=== PATIENT | male | born 1940 | race Caucasian/White ===

== ENCOUNTER 2018-06-02 13:17 | Inpatient (IN) | payer MEDICARE, BC ==
[2018-06-02 14:15] LABS: Basophils # (A) 0.1 k/uL (0-0.2); Basophils % (A) 1 %; Eosinophils # (A) 0.1 k/uL (0-0.7); Eosinophils % (A) 2 %; HCT 41.1 % (39.0-53.0); HGB 13.6 gm/dL (13.0-17.5); Lymphocytes % (A) 15 %; MCH 30.2 pg (25.0-35.0); MCV 91.5 fL (80.0-100.0); Mean Platelet Volume 6.6; Monocytes # (A) 0.4 k/uL (0-1.0); Monocytes % (A) 7 %; Neutrophils # (A) 4.7 k/uL (1.3-7.7); Neutrophils % (A) 73 %; Platelet Count 227 k/uL (150-450); RBC 4.49 m/uL (4.30-5.90); RDW 13.2 % (11.5-15.5); WBC 6.4 k/uL (3.8-10.6)
[2018-06-02 14:21] LABS: Partial Thromboplastin Time 24.3 sec (22.0-30.0); Prothrombin Time 10.5 sec (9.0-12.0)
[2018-06-02 14:28] LABS: ALT 27 U/L (21-72); AST 25 U/L (17-59); Albumin 3.8 g/dL (3.5-5.0); Alkaline Phosphatase 64 U/L (38-126); Anion Gap 9 mmol/L; Blood Urea Nitrogen 20 mg/dL (9-20); Calcium 9.3 mg/dL (8.4-10.2); Carbon Dioxide 22 mmol/L (22-30); Chloride 109 mmol/L (98-107); Glucose 92 mg/dL (74-99); Magnesium 1.8 mg/dL (1.6-2.3); Potassium 4.3 mmol/L (3.5-5.1); Sodium 140 mmol/L (137-145); Total Bilirubin 0.5 mg/dL (0.2-1.3); Total Protein 6.5 g/dL (6.3-8.2)
[2018-06-02 14:47] LABS: Troponin I 0.083 ng/mL (0.000-0.034)
[2018-06-02] MEDS ORDERED: NITROGLYCERIN OINT 1 INCH/GM PACKET TOPICAL STA (15:33)
[2018-06-02] MEDS ORDERED: ASPIRIN 81 MG PO STA (15:33)
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
[2018-06-02] MEDS ORDERED: NITROGLYCERIN SL TABS 0.4 MG TAB SUBLINGUAL PRN (16:05)
[2018-06-02] MEDS ORDERED: HEPARIN SODIUM,PORCINE 5,000 UNIT/ML 1 ML VIAL IV ONE (16:05)
[2018-06-02] MEDS ORDERED: HEPARIN SODIUM,PORCINE 5,000 UNIT/ML 1 ML VIAL IV PRN (16:05)
--- NOTE | 2018-06-02 16:08 | XR ---
EXAMINATION TYPE: XR chest 2V DATE OF EXAM: 06/02/2018 COMPARISON: NONE HISTORY: Upper chest pain and shortness of breath TECHNIQUE: Frontal and lateral views of the chest are obtained. FINDINGS: There is no focal air space opacity, pleural effusion, or pneumothorax seen. The cardiac silhouette size is within normal limits. The osseous structures are intact. Mild multilevel degener ative changes of the thoracic spine are seen. IMPRESSION: No acute cardiopulmonary process.
[2018-06-02] MEDS: HEPARIN SOD,PORK IN 0.45% NACL 25,000 UNIT in 0.45% NACL 1 250ML.BAG IV SCH (17:39)
--- NOTE | 2018-06-02 19:20 | CONS ---
CONSULTATION CHIEF COMPLAINT: Chest pain. Phani is a 78-year-old gentleman with history of coronary artery disease, status post prior angioplasty who comes to hospital with chest pain. He describes it as precordial chest pressure that started around 10 or 11 o'clock today. Moderate to severe intensity at rest, radiated to his back. He took 2 nitroglycerins following which he became pain-free. He came [facility] the emergency room at [facility]. EKG shows sinus rhythm with right bundle branch block. At the time of my evaluation, he is pain free, hemodynamically stable and in no apparent distress. The patient's clinical presentation is consistent with acute non ST-segment elevation myocardial infarction and I advised the patient to undergo cardiac catheterization which will be done tomorrow morning. In the meantime, we will treat him with aspirin, nitrates, beta blockers, statins, and intravenous heparin. PAST MEDICAL HISTORY: Significant for coronary artery disease, status post angioplasty. MEDICATIONS: Include Crestor 10 q. daily, aspirin and vitamin C. ALLERGIES: No known drug allergies. FAMILY HISTORY: Negative for premature coronary artery disease. SOCIAL HISTORY: Is negative for current smoking, EtOH abuse, or drug abuse. REVIEW OF SYSTEMS: HEENT is unremarkable. Cardiac as described above. Respiratory negative. GI negative. GENITOURINARY: Negative. Allergy: Negative. Musculoskeletal negative. CONSTITUTIONAL negative. ENDOCRINE: Negative. Oncological negative. Derm: Negative. Rest of the system review is not relevant. EXAM: Comfortable at rest. Vital signs are stable. There is no jugular venous distention. Carotid upstroke is normal. There is no bruit. Chest exam reveals good air entry bilaterally. Heart exam reveals first and second heart sounds. Systolic murmur at the apex. Abdomen is soft. Exam of the extremities did not reveal any edema. Peripheral pulses are felt. EKG shows sinus rhythm with right bundle branch block. LABS: Show that hemoglobin is normal. Platelet count is normal. Troponin is elevated at 0.08. Potassium is 4.3. Creatinine is 0.9. ASSESSMENT: Acute non ST-segment elevation myocardial infarction. PLAN: Patient will be treated with aspirin, heparin, nitrates, beta blockers and statins. He will undergo cardiac catheterization tomorrow morning. He had been explained of risks, benefits and alternatives, understood and accepted. MMODL / IJN: [id number] /
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
[2018-06-02 20:34] VITALS: BMI 28.7
[2018-06-02 21:00] LABS: Creatine Kinase MB 2.4 ng/mL (0.0-2.4)
[2018-06-02 21:09] LABS: Troponin I 0.694 ng/mL (0.000-0.034)
[2018-06-03] MEDS: METOPROLOL SUCCINATE (ER) 25 MG TAB.ER.24H PO SCH ×4 (00:41→09:16)
[2018-06-03] MEDS: NITROGLYCERIN OINT 1 INCH/GM PACKET TOPICAL SCH ×6 (00:42→20:37)
[2018-06-03 02:45] LABS: Mean Platelet Volume 6.5; Platelet Count 229 k/uL (150-450)
[2018-06-03 02:56] LABS: Cholesterol 121 mg/dL (<200); HDL Cholesterol 26 mg/dL (40-60); LDL Cholesterol,Calculated 85 mg/dL (0-99); Triglycerides 49 mg/dL (<150)
[2018-06-03 03:17] LABS: Creatine Kinase MB 2.2 ng/mL (0.0-2.4)
[2018-06-03 03:45] LABS: Troponin I 0.328 ng/mL (0.000-0.034)
[2018-06-03] MEDS ORDERED: ALPRAZolam 0.5 MG TAB PO PRN (08:16)
[2018-06-03] MEDS ORDERED: ALPRAZolam 0.25 MG TAB PO PRN (08:16)
[2018-06-03] MEDS ORDERED: NITROGLYCERIN SL TABS 0.4 MG TAB SUBLINGUAL PRN (08:16)
[2018-06-03] MEDS ORDERED: ASPIRIN 325 MG TAB PO STA (08:16)
[2018-06-03] MEDS ORDERED: SODIUM CHLORIDE 0.9% 1,000 ML in EMPTY BAG 1 BAG IV ONE (08:16)
[2018-06-03] MEDS ORDERED: ATORVASTATIN 80 MG TAB PO STA (08:16)
[2018-06-03] MEDS: ASPIRIN 325 MG TAB PO SCH ×3 (08:57→09:16)
[2018-06-03] MEDS: ATORVASTATIN 80 MG TAB PO SCH ×3 (08:57→09:16)
[2018-06-03] MEDS ORDERED: IV FLUID CONTINUATION 400 ML IV ONE (09:28)
[2018-06-03] MEDS ORDERED: LIDOCAINE 1% INJ 10MG/ML (20 ML MDV) ONE ×2 (09:38→11:19)
[2018-06-03] MEDS ORDERED: fentaNYL (PF) 50 MCG/ML 2 ML AMP ONE (09:53)
[2018-06-03] MEDS ORDERED: MIDAZOLAM 2 MG/2 ML VIAL IV ONE (09:56)
[2018-06-03] MEDS ORDERED: LIDOCAINE 1% INJ 10MG/ML (20 ML MDV) SQ ONE ×2 (09:58→11:20)
[2018-06-03] MEDS ORDERED: BIVALIRUDIN BOLUS 250 MG/50 ML IV ONE (10:56)
[2018-06-03] MEDS ORDERED: BIVALIRUDIN 250 MG in SODIUM CHLORIDE 0.9% 50 ML IV ONE (10:56)
--- NOTE | 2018-06-03 11:14 | CC ---
CARDIAC CATHETERIZATION REPORT INDICATION: Non ST-segment elevation myocardial infarction. PROCEDURE NOTE: After obtaining informed consent, left heart catheterization and coronary angiogram are performed via the right femoral artery using standard Cody catheters. The patient tolerated the procedure well without any obvious immediate complications. Patient received moderate conscious sedation and total sedation time was 15 minutes. FINDINGS: 1. HEMODYNAMICS: Left ventricular end-diastolic pressure is 8 to 12 mm. There is no significant gradient across aortic valve. 2. LEFT VENTRICULOGRAM: Left ventriculogram is not performed. 3. ANGIOGRAPHIC DATA. Left main coronary artery is a normal size vessel and is free of stenosis. Divides into left anterior descending coronary artery and circumflex coronary artery. The previously stented segment in the LAD appears patent and free of significant disease. Circumflex coronary artery is a "nondominant" vessel gives off large caliber OM1 and OM2. OM2 has a focal 90% to 95% stenosis. Right coronary artery is a large dominant vessel that has mild nonobstructive disease in the mid to distal portion. There was damping of the pressure wave pattern on engaging the right coronary artery. CONCLUSIONS: 1. Patent stent within the LAD. 2. A 90% stenosis involving second OM branch. PLAN: Patient will undergo angioplasty with stent placement of second OM. MMODL / IJN: [id number] /
[2018-06-03] MEDS ORDERED: IOPAMIDOL-370 125ML BTL INJ ONE (11:21)
[2018-06-03] MEDS ORDERED: fentaNYL (PF) 50 MCG/ML 2 ML AMP IV ONE (11:21)
[2018-06-03] MEDS ORDERED: TICAGRELOR 90 MG TAB ONE (11:22)
[2018-06-03] MEDS ORDERED: TICAGRELOR 90 MG TAB PO ONE (11:22)
[2018-06-03] MEDS ORDERED: SODIUM CHLORIDE 0.9% 1,000 ML IV ONE (11:24)
[2018-06-03] MEDS ORDERED: SODIUM CHLORIDE 0.9% 1,000 ML IV SCH (12:00)
--- NOTE | 2018-06-03 15:49 | P.PN ---
Subjective 78-year-old pleasant gentleman admitted non-ST elevation microinfarction underwent cardia catheterization and stenting to use marginal branch patient is otherwise clinically doing well. Constitutional: Denied any fatigue denied any fever. Cardio vascular: denied any chest pain, palpitations Gastrointestinal denied any nausea vomiting Pulmonary: Denied any shortness of breath cough Neurologic denied any new focal deficits All inpatient medications were reviewed and appropriate changes in these medications as dictated in the interval history and assessment and plan. Objective - Vital Signs Vital signs: Vital Signs Temp 98.2 F 06/03/18 09:00 Pulse 68 06/03/18 14:45 Resp 30 H 06/03/18 10:00 BP 150/70 06/03/18 14:45 Pulse Ox 98 06/03/18 14:45 Intake & Output 06/02/18 06/03/18 06/03/18 18:59 06:59 18:59 Intake Total 90 479.37 Output Total 350 500 Balance -260 -20.63 Weight 90.718 kg 90.7 kg Intake: IV 459.37 Sodium Chloride 0.9% 1, 75 000 ml @ 75 mls/hr IV . [id number] [facility] Rx#:[id number] Oral 90 20 Output: Urine 350 500 Other: Voiding Method Urinal - Exam PHYSICAL EXAMINATION: GENERAL: The patient is alert and oriented x3, not in any acute distress. Well developed, well nourished. HEENT: Pupils are round and equally reacting to light. EOMI. No scleral icterus. No conjunctival pallor. Normocephalic, atraumatic. No pharyngeal erythema. No thyromegaly. CARDIOVASCULAR: S1 and S2 present. No murmurs, rubs, or gallops. PULMONARY: Chest is clear to auscultation, no wheezing or crackles. ABDOMEN: Soft, nontender, nondistended, normoactive bowel sounds. No palpable organomegaly. MUSCULOSKELETAL: No joint swelling or deformity. EXTREMITIES: No cyanosis, clubbing, or pedal edema. NEUROLOGICAL: Gross neurological examination did not reveal any focal deficits. SKIN: No rashes. - Labs CBC & Chem 7: 06/03/18 02:26 06/02/18 13:44 Labs: Abnormal Lab Results - Last 24 Hours (Table) 06/02/18 06/03/18 06/03/18 Range/Units 20:12 02:26 02:26 APTT (22.0-30.0) sec Total Creatine Kinase 43 L 38 L (55-170) U/L Troponin I 0.694 H* 0.328 H* (0.000-0.034) ng/mL HDL Cholesterol 26 L (40-60) mg/dL 06/03/18 Range/Units 02:26 APTT 48.1 H (22.0-30.0) sec Total Creatine Kinase (55-170) U/L Troponin I (0.000-0.034) ng/mL HDL Cholesterol (40-60) mg/dL Assessment and Plan Plan: -non-ST elevation myocardial infarction: Continue with IV heparin, aspirin, beta delia, statin. Patient underwent cardia catheterization and stenting to obtuse marginal 2 with a possibility of discharge tomorrow carotid artery disease with previous stents in the past -Gastroesophageal reflux disease -Benign prostatic hypertrophy -
[2018-06-03] MEDS: CALCIUM CARB-VIT D 500MG-200UN 1 EACH TAB PO SCH ×3 (17:32→20:32)
[2018-06-03] MEDS ORDERED: ATORVASTATIN 20 MG TAB PO SCH (21:00)
[2018-06-03] MEDS: HEPARIN SOD,PORK IN 0.45% NACL 25,000 UNIT in 0.45% NACL 1 250ML.BAG IV SCH (21:57)
--- NOTE | 2018-06-04 03:13 | PTCA ---
PERCUTANEOUSTRANS CORORONARY ANGIOGRAPHY DATE OF SERVICE: 06/03/2018. PROCEDURE: PTCA and stenting of second obtuse marginal branch of circumflex. PERFORMED BY: Dr. Norm Cohen. ANESTHESIA: Moderate conscious sedation time was 28 minutes. Patient was administered Versed and fentanyl. Oxygen saturation, hemodynamics and EKG were monitored closely. CLINICAL INFORMATION: Mr. 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 Ryan Cohen, presented to the hospital with symptoms of unstable angina and mild troponin elevation. Dr. Peters performed a cardiac cath which revealed that the second obtuse marginal had a 95% lesion. There was a moderate lesion in the first obtuse marginal of nearly 50%. The LAD that was stented was widely patent. He was advised intervention of the circumflex marginal that was performed in the same setting. PROCEDURE NOTE: The existing 6-[place] introducer in the right femoral artery was used to perform the procedure. A standard left Cody guide catheter of 6-[place] caliber was used to cannulate the left coronary artery. A run-through wire was used to cross the lesion, wire was kept distally. Without predilatation, a 12 mm long 2.5 caliber Xience stent was deployed at 14 atmospheres. Patient had mild chest discomfort. No significant EKG changes. Excellent angiographic result was achieved. He received Angiomax bolus and infusion. He also received Brilinta 180 mg orally. The sheath was taken out and a Perclose device used to secure hemostasis. Excellent angiographic result without complication was achieved. The findings were discussed with the patient and family. He was sent to the room in a stable condition. MMODL / IJN: [id number] /
[2018-06-04] MEDS: NITROGLYCERIN OINT 1 INCH/GM PACKET TOPICAL SCH (05:07)
[2018-06-04 06:32] LABS: Basophils % (A) 1 %; Eosinophils # (A) 0.2 k/uL (0-0.7); Eosinophils % (A) 4 %; HCT 39.6 % (39.0-53.0); HGB 13.3 gm/dL (13.0-17.5); Lymphocytes # (A) 1.3 k/uL (1.0-4.8); Lymphocytes % (A) 22 %; MCH 30.9 pg (25.0-35.0); MCHC 33.5 g/dL (31.0-37.0); MCV 92.3 fL (80.0-100.0); Mean Platelet Volume 6.9; Monocytes # (A) 0.4 k/uL (0-1.0); Monocytes % (A) 7 %; Neutrophils # (A) 3.8 k/uL (1.3-7.7); Neutrophils % (A) 63 %; Platelet Count 226 k/uL (150-450); RDW 13.2 % (11.5-15.5)
[2018-06-04 06:47] LABS: Anion Gap 7 mmol/L; Blood Urea Nitrogen 16 mg/dL (9-20); Calcium 9.3 mg/dL (8.4-10.2); Carbon Dioxide 23 mmol/L (22-30); Chloride 110 mmol/L (98-107); Glucose 93 mg/dL (74-99); Potassium 4.2 mmol/L (3.5-5.1); Sodium 140 mmol/L (137-145)
[2018-06-04 08:44] VITALS: BP 136/68; PULSE 70; RESP 18; TEMP 97.7
[2018-06-04] MEDS: METOPROLOL SUCCINATE (ER) 25 MG TAB.ER.24H PO SCH (08:45)
[2018-06-04] MEDS: CALCIUM CARB-VIT D 500MG-200UN 1 EACH TAB PO SCH (08:45)
[2018-06-04] MEDS ORDERED: LOSARTAN 25 MG TAB PO SCH (09:00)
[2018-06-04] MEDS ORDERED: CLOPIDOGREL 75 MG TAB PO SCH (09:00)
[2018-06-04] MEDS ORDERED: ASPIRIN 81 MG PO SCH (09:00)
[2018-06-04] MEDS ORDERED: ASCORBIC ACID 500 MG TAB PO SCH (09:00)
--- NOTE | 2018-06-04 09:13 | ECHOF ---
Referral Reason:nstemi MEASUREMENTS -------- HEIGHT: 180.3 cm WEIGHT: 90.3 kg BP: 111/65 IVSd: 1.3 cm (0.6 - 1.1) LVIDd: 4.1 cm (3.9 - 5.3) LVPWd: 1.7 cm (0.6 - 1.1) IVSs: 1.8 cm LVIDs: 1.9 cm LVPWs: 1.9 cm Ao Diam: 3.0 cm (2.0 - 3.7) AV Cusp: 2.0 cm (1.5 - 2.6) LA Diam: 2.6 cm (2.7 - 3.8) MV EXCURSION: 16.659 mm (> 18.000) MV EF SLOPE: 96 mm/s (70 - 150) EPSS: 0.6 cm MV E Mario: 0.92 m/s MV DecT: 278 ms MV A Mario: 0.95 m/s MV E/A Ratio: 0.98 RAP: 5.00 mmHg RVSP: 14.84 mmHg FINDINGS -------- Sinus rhythm. This was a technically difficult study with suboptimal views. The left ventricular size is normal. There is moderate concentric left ventricular hypertrophy. O verall left ventricular systolic function is normal with, an EF between 55 - 60 %. The right ventricle is normal in size and function. The left atrium is normal in size. The right atrium is normal in size. Lumason used The aortic valve is trileaflet and appears structurally normal. Mild mitral regurgitation is present. Mild tricuspid regurgitation present. The right ventricular systolic pressure, as measured by Doppl er, is 14.84mmHg. Pulmonic valve appears structurally normal. The aortic root, ascending aorta and aortic arch are normal. IVC Not well visulized. The pericardium is normal. CONCLUSIONS -------- 1. Sinus rhythm. 2. This was a technically difficult study with suboptimal views. 3. The left ventricular size is normal. 4. There is moderate concentric left ventricular hypertrophy. 5. Overall left ventricular systolic function is normal with, an EF between 55 - 60 %. 6. The right ventricle is normal in size and function. 7. The left atrium is normal in size. 8. The right atrium is normal in size. 9. Lumason used 10. The aortic valve is trileaflet and appears structurally normal. 11. Mild mitral regurgitation is present. 12. Mild tricuspid regurgitation present. 13. The right ventricular systolic pressure, as measured by Doppler, is 14.84mmHg. 14. Pulmonic valve appears structurally normal. 15. The aortic root, ascending aorta and aortic arch are normal. 16. IVC Not well visulized. 17. The pericardium is normal. MATERIAL WORKER: Nora Leal RDCS
--- NOTE | 2018-06-04 11:10 | P.DS ---
Providers Date of admission: 06/02/18 16:05 Attending physician: Jimmy Moore Consults: 06/02/18 16:05 Consult Physician Urgent Consulting Provider: Jose Peters Consult Reason/Comments: nstemi Do you want consulting provider notified?: Yes Primary care physician: Stated None Hospital Course: 78-year-old pleasant gentleman admitted non-ST elevation microinfarction underwent cardia catheterization and stenting to obtuse marginal branch patient is otherwise clinically doing well.patient will be discharged today. Next PHYSICAL EXAMINATION: GENERAL: The patient is alert and oriented x3, not in any acute distress. Well developed, well nourished. HEENT: Pupils are round and equally reacting to light. EOMI. No scleral icterus. No conjunctival pallor. Normocephalic, atraumatic. No pharyngeal erythema. No thyromegaly. CARDIOVASCULAR: S1 and S2 present. No murmurs, rubs, or gallops. PULMONARY: Chest is clear to auscultation, no wheezing or crackles. ABDOMEN: Soft, nontender, nondistended, normoactive bowel sounds. No palpable organomegaly. MUSCULOSKELETAL: No joint swelling or deformity. EXTREMITIES: No cyanosis, clubbing, or pedal edema. NEUROLOGICAL: Gross neurological examination did not reveal any focal deficits. SKIN: No rashes. Assessment and Plan Plan: -non-ST elevation myocardial infarction: Continue with IV heparin, aspirin, beta delia, statin. Patient underwent cardia catheterization and stenting to obtuse marginal 2 carotid artery disease with previous stents in the past -Gastroesophageal reflux disease -Benign prostatic hypertrophy - Patient Condition at Discharge: Serious Plan - Discharge Summary Discharge Rx Participant: No New Discharge Prescriptions: New Clopidogrel [Plavix] 75 mg PO DAILY #30 tab Losartan [Cozaar] 25 mg PO DAILY #30 tab Metoprolol Succinate (ER) [Toprol XL] 12.5 mg PO DAILY #30 tab.er.24h Continue Aspirin EC [Ecotrin Low Dose] 81 mg PO DAILY Multivitamins, Thera [Multivitamin (formulary)] 1 tab PO DAILY Ascorbic Acid [Vitamin C] 1,000 mg PO DAILY Calcium Carb-Vit D 500Mg-200Un [Oscal 500+D] 1 tab PO QID [place]-3 Fatty Acids [[place]-3] 2,000 mg PO DAILY Rosuvastatin [Crestor] 10 mg PO DAILY Nitroglycerin Sl Tabs [Nitrostat] 0.4 mg PO DIRECTED #25 tab Discharge Medication List Ascorbic Acid [Vitamin C] 1,000 mg PO DAILY 12/22/13 [History] Aspirin EC [Ecotrin Low Dose] 81 mg PO DAILY 12/22/13 [History] Calcium Carb-Vit D 500Mg-200Un [Oscal 500+D] 1 tab PO QID 12/22/13 [History] Multivitamins, Thera [Multivitamin (formulary)] 1 tab PO DAILY 12/22/13 [History ] [place]-3 Fatty Acids [[place]-3] 2,000 mg PO DAILY 12/22/13 [History] Rosuvastatin [Crestor] 10 mg PO DAILY 06/02/18 [History] Clopidogrel [Plavix] 75 mg PO DAILY #30 tab 06/04/18 [Rx] Losartan [Cozaar] 25 mg PO DAILY #30 tab 06/04/18 [Rx] Metoprolol Succinate (ER) [Toprol XL] 12.5 mg PO DAILY #30 tab.er.24h 06/04/18 [ Rx] Nitroglycerin Sl Tabs [Nitrostat] 0.4 mg PO DIRECTED #25 tab 06/04/18 [Rx] Follow up Appointment(s)/Referral(s): Blanco Chen MD [STAFF PHYSICIAN] - 06/13/18 8:30 am (Saturday) Lopez Singh MD [REFERRING] - 06/10/18 10:30 am (Saturday with [employer]) Patient Instructions/Handouts: *Surgery [facility] - After Heart Catheterization - [employer] Instructions, Left Heart Catheterization (DC) Discharge Disposition: HOME SELF-CARE
--- NOTE | 2018-06-04 11:24 | P.PN ---
Subjective Progress Note Date: 06/04/18 This is a pleasant 78-year-old gentleman with known history of coronary artery disease and prior stenting who presented to the hospital with a non-Q-wave myocardial infarction. He was taken to the cardiac catheterization lab where he underwent angioplasty and stenting of the OM. Echocardiogram with Doppler study revealed an ejection fraction of 55-60%. EKG from this morning was reviewed, reveals normal sinus rhythm with no changes from post-PCI. Blood pressure 130/60 with a heart rate in the 60s, 98% on room air. White blood cell count 6.0, hemoglobin 13.3, platelet count 226. Sodium 140, potassium 4.2 , BUN 16, creatinine 0.9. Objective - Vital Signs Vital signs: Vital Signs Temp 97.7 F 06/04/18 08:41 Pulse 70 06/04/18 08:41 Resp 18 06/04/18 08:41 BP 136/68 06/04/18 08:41 Pulse Ox 98 06/04/18 08:41 Intake & Output 06/03/18 06/04/18 06/04/18 18:59 06:59 18:59 Intake Total 679.37 2440 240 Output Total 500 Balance 179.37 2440 240 Weight 90.7 kg Intake: IV 459.37 1000 Sodium Chloride 0.9% 1, 75 1000 000 ml @ 75 mls/hr IV . [id number] TRINY Rx#:[id number] Oral 220 1440 240 Output: Urine 500 Other: Voiding Method Toilet Toilet # Voids 2 - Exam PHYSICAL EXAMINATION: GENERAL: 78-year-old gentleman in no acute distress at the time of my examination HEENT: Head is atraumatic, normocephalic. Pupils equal, round. Sclera anicteric. Conjunctiva are clear. Mucous membranes of the mouth are moist. Neck is supple. There is no elevated jugular venous pressure. No carotid bruit is heard. HEART EXAMINATION: Heart S1, S2 normal. No murmur or gallop heard. CHEST EXAMINATION: Lungs are clear to auscultation and precussion. No chest wall tenderness is noted on palpation or with deep breathing. ABDOMEN: Soft, nontender. Bowel sounds are heard. No organomegaly noted. EXTREMITIES: 2+ peripheral pulses with no evidence of peripheral edema and no calf tenderness noted. Right groin ecchymotic, soft, no bruit, no hematoma. NEUROLOGIC patient is awake, alert and oriented 3 . . - Labs CBC & Chem 7: 06/04/18 06:09 06/04/18 06:09 Labs: Abnormal Lab Results - Last 24 Hours (Table) 06/04/18 Range/Units 06:09 Chloride 110 H (98-107) mmol/L Assessment and Plan Plan: Assessment and plan #1 non-ST elevation VT, status post angioplasty and stenting of the OM. #2 history of coronary artery disease with prior stent placement #3 hyperlipidemia #4 hypertension Plan From cardiology's perspective, patient may be able to be discharged home today. We will make a follow-up appointment in the office in one week. Patient will be discharged home on aspirin 81 mg daily, Lipitor 20 mg daily, Plavix 75 mg daily, losartan 25 mg daily, metoprolol 12.5 mg daily, we'll discontinue the Nitropaste, sublingual nitroglycerin as needed for chest pain. DNP note has been reviewed, I agree with a documented findings and plan of care. Patient was seen and examined.
[2018-06-04] MEDS ORDERED: MULTIVITAMINS, THERA 1 EACH TAB PO SCH (12:00)
== END 2018-06-04 12:49 | disposition home or self-care (01) | DRG 247 ==
LOC: EC 13:17 → 3SCARD 16:05 → 2ORMAIN 06-03 07:46 → 3SCARD 06-03 14:35
PROVIDERS: ADMIT Internal Medicine; ATTEND Internal Medicine
PROC: B2111ZZ Fluoroscopy of Multiple Coronary Arteries using Low Osmolar Contrast (ICD-10-PCS; 2018-06-03)
PROC: 027034Z Dilation of Coronary Artery, One Artery with Drug-eluting Intraluminal Device, Percutaneous Approach (ICD-10-PCS; principal; 2018-06-03 09:45)
PROC: 4A023N7 Measurement of Cardiac Sampling and Pressure, Left Heart, Percutaneous Approach (ICD-10-PCS; 2018-06-03 09:45)
DX: I21.4 Non-ST elevation (NSTEMI) myocardial infarction (principal); I25.10 Atherosclerotic heart disease of native coronary artery without angina pectoris; E78.5 Hyperlipidemia, unspecified; I10 Essential (primary) hypertension; I25.2 Old myocardial infarction; I45.10 Unspecified right bundle-branch block; K21.9 Gastro-esophageal reflux disease without esophagitis; N40.0 Benign prostatic hyperplasia without lower urinary tract symptoms; M19.90 Unspecified osteoarthritis, unspecified site; Z79.82 Long term (current) use of aspirin; Z79.899 Other long term (current) drug therapy; Z86.010 Personal history of colon polyps; Z95.5 Presence of coronary angioplasty implant and graft; Z80.6 Family history of leukemia; Z82.49 Family history of ischemic heart disease and other diseases of the circulatory system
CPT/HCPCS: 36415; 71046; 80048; 80053; 80061; 82550; 82553; 83735; 84484; 85025; 85049; 85610; 85730; 93005; 93306; 93458; 96365; 96366; 96376; 99291; C1874

== ENCOUNTER 2018-10-21 15:10 | Inpatient (IN) | payer MEDICARE, BC ==
[2018-10-21 16:12] LABS: Basophils % (A) 1 %; Eosinophils # (A) 0.3 k/uL (0-0.7); Eosinophils % (A) 4 %; HCT 38.1 % (39.0-53.0); Lymphocytes # (A) 1.4 k/uL (1.0-4.8); Lymphocytes % (A) 21 %; MCH 30.4 pg (25.0-35.0); MCHC 34.1 g/dL (31.0-37.0); MCV 88.9 fL (80.0-100.0); Mean Platelet Volume 7.1; Monocytes # (A) 0.5 k/uL (0-1.0); Monocytes % (A) 8 %; Neutrophils # (A) 4.1 k/uL (1.3-7.7); Neutrophils % (A) 63 %; Platelet Count 226 k/uL (150-450); RBC 4.29 m/uL (4.30-5.90); RDW 13.5 % (11.5-15.5); WBC 6.5 k/uL (3.8-10.6)
[2018-10-21 16:14] LABS: ALT 21 U/L (21-72); AST 21 U/L (17-59); Albumin 3.9 g/dL (3.5-5.0); Alkaline Phosphatase 60 U/L (38-126); Anion Gap 9 mmol/L; Blood Urea Nitrogen 28 mg/dL (9-20); Calcium 9.3 mg/dL (8.4-10.2); Carbon Dioxide 22 mmol/L (22-30); Chloride 110 mmol/L (98-107); Glucose 113 mg/dL (74-99); Potassium 4.2 mmol/L (3.5-5.1); Sodium 141 mmol/L (137-145); Total Bilirubin 0.3 mg/dL (0.2-1.3); Total Protein 6.6 g/dL (6.3-8.2)
[2018-10-21 16:18] LABS: Partial Thromboplastin Time 25.1 sec (22.0-30.0); Prothrombin Time 10.3 sec (9.0-12.0)
[2018-10-21] MEDS ORDERED: ASPIRIN 325 MG TAB PO STA (19:21)
[2018-10-21] MEDS ORDERED: NITROGLYCERIN SL TABS 0.4 MG TAB SUBLINGUAL PRN ×2 (19:22→22:57)
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
--- NOTE | 2018-10-21 21:20 | XR ---
EXAMINATION: XR chest 2V DATE AND TIME: 10/21/2018 7:08 PM CLINICAL INDICATION: PHH; Pain TECHNIQUE: Departmental protocol COMPARISON: 06/02/2018 FINDINGS: The lungs are clear. The pleural spaces are negative. The cardiac silhouette is borderline enlarged. The remainder of the mediastinal silhouette is unremar kable. The skeletal structures and soft tissues are negative for acute findings. IMPRESSION: NO ACUTE PROCESS.
[2018-10-21] MEDS ORDERED: LOSARTAN 25 MG TAB PO SCH (23:00)
[2018-10-21] MEDS ORDERED: METOPROLOL TARTRATE 12.5 MG TAB PO SCH (23:00)
[2018-10-21] MEDS: CLOPIDOGREL 75 MG TAB PO SCH (23:26)
[2018-10-22] MEDS ORDERED: HEPARIN SODIUM,PORCINE 5,000 UNIT/ML 1 ML VIAL IV ONE (00:12)
[2018-10-22] MEDS ORDERED: HEPARIN SODIUM,PORCINE 5,000 UNIT/ML 1 ML VIAL IV PRN (00:12)
[2018-10-22] MEDS ORDERED: HEPARIN SOD,PORK IN 0.45% NACL 25,000 UNIT in 0.45% NACL 1 250ML.BAG IV SCH (00:15)
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
[2018-10-22 08:38] LABS: Cholesterol 111 mg/dL (<200); HDL Cholesterol 29 mg/dL (40-60); LDL Cholesterol,Calculated 74 mg/dL (0-99); Triglycerides 38 mg/dL (<150)
[2018-10-22] MEDS ORDERED: ASPIRIN 81 MG PO SCH (09:00)
[2018-10-22] MEDS ORDERED: OMEGA PO SCH (09:00)
[2018-10-22] MEDS ORDERED: ATORVASTATIN 20 MG TAB PO SCH (09:00)
[2018-10-22] MEDS ORDERED: FATTY ACIDS PO SCH (09:00)
[2018-10-22] MEDS ORDERED: ASPIRIN 325 MG TAB PO SCH (09:00)
[2018-10-22] MEDS: ASCORBIC ACID 500 MG TAB PO SCH (09:19)
[2018-10-22] MEDS: CALCIUM CARB-VIT D 500MG-200UN 1 EACH TAB PO SCH ×4 (09:19→21:45)
[2018-10-22] MEDS: MULTIVITAMINS, THERA 1 EACH TAB PO SCH (09:20)
[2018-10-22] MEDS ORDERED: ALPRAZolam 0.25 MG TAB PO PRN (09:28)
[2018-10-22] MEDS ORDERED: SODIUM CHLORIDE 0.9% 1,000 ML in EMPTY BAG 1 BAG IV ONE (09:28)
[2018-10-22] MEDS ORDERED: ALPRAZolam 0.5 MG TAB PO PRN (09:28)
[2018-10-22] MEDS ORDERED: LIDOCAINE 1% INJ 10MG/ML (20 ML MDV) ONE (12:24)
[2018-10-22] MEDS ORDERED: VERAPAMIL 2.5 MG/ML 2 ML AMP ONE (12:24)
[2018-10-22] MEDS ORDERED: IV FLUID CONTINUATION 1,000 ML IV ONE (12:55)
[2018-10-22] MEDS ORDERED: MIDAZOLAM (PF) 2 MG/2 ML VIAL IV ONE (12:55)
[2018-10-22] MEDS ORDERED: LIDOCAINE 1% INJ 10MG/ML (20 ML MDV) SQ ONE (12:59)
[2018-10-22] MEDS: VERAPAMIL SYRINGE (5 MG/10 ML) INTRAARTER ONE ×2 (13:00→13:26)
[2018-10-22] MEDS ORDERED: HEPARIN SODIUM 1,000 UN/ML (10ML VL) IV ONE (13:26)
[2018-10-22] MEDS ORDERED: NITROGLYCERIN SL TABS 0.4 MG TAB SUBLINGUAL ONE ×2 (13:29→13:30)
[2018-10-22] MEDS ORDERED: IOPAMIDOL-370 100ML BTL INJ ONE (13:30)
[2018-10-22] MEDS ORDERED: RX INFO: IV CONTRAST WAS GIVEN 1 EACH MISC MISCELLANE PRN (13:33)
[2018-10-22] MEDS: SODIUM CHLORIDE 0.9% 1,000 ML IV SCH (14:02)
--- NOTE | 2018-10-22 16:29 | ECHOF ---
Referral Reason:nstemi MEASUREMENTS -------- HEIGHT: 177.8 cm WEIGHT: 90.7 kg BP: 128/67 RVIDd: 3.1 cm (< 3.3) IVSd: 1.6 cm (0.6 - 1.1) LVIDd: 4.7 cm (3.9 - 5.3) LVPWd: 1.4 cm (0.6 - 1.1) IVSs: 1.8 cm LVIDs: 3.3 cm LVPWs: 2.2 cm LA Diam: 3.5 cm (2.7 - 3.8) LAESV Index (A-L): 30.86 ml/m Ao Diam: 3.9 cm (2.0 - 3.7) MV EXCURSION: 16.963 mm (> 18.000) MV EF SLOPE: 51 mm/s (70 - 150) EPSS: 0.6 cm MV E Mario: 0.92 m/s MV DecT: 304 ms MV A Mario: 1.10 m/s MV E/A Ratio: 0.84 FINDINGS -------- Sinus rhythm. This was a technically adequate study. The left ventricular size is normal. There is moderate concentric left ventricular hypertrophy. O verall left ventricular systolic function is normal with, an EF between 60 - 65 %. The right ventricle is normal in size. LA is midly dilated 29-33ml/m2. The right atrium is normal in size. Interatrial and interventricular septum intact. There is mild aortic valve sclerosis. Mild mitral annular calcification present. The tricuspid valve appears structurally normal. The pulmonic valve was not well visualized. The aortic root is dilated measuring 3.9cm. Normal inferior vena cava with normal inspiratory collapse consistent with estimated right atrial pre ssure of 5 mmHg. There is no pericardial effusion. CONCLUSIONS -------- 1. Sinus rhythm. 2. This was a technically adequate study. 3. The left ventricular size is normal. 4. There is moderate concentric left ventricular hypertrophy. 5. Overall left ventricular systolic function is normal with, an EF between 60 - 65 %. 6. The right ventricle is normal in size. 7. LA is midly dilated 29-33ml/m2. 8. The right atrium is normal in size. 9. Interatrial and interventricular septum intact. 10. There is mild aortic valve sclerosis. 11. Mild mitral annular calcification present. 12. The tricuspid valve appears structurally normal. 13. The pulmonic valve was not well visualized. 14. The aortic root is dilated measuring 3.9cm. 15. Normal inferior vena cava with normal inspiratory collapse consistent with estimated right atrial pressure of 5 mmHg. 16. There is no pericardial effusion. SUPPLY CHAIN TECHNICIAN: Niurka Chaney RDCS
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
--- NOTE | 2018-10-22 17:17 | CC ---
CARDIAC CATHETERIZATION REPORT DATE OF SERVICE: 10/22/2018. PROCEDURE: Coronary angiography. PERFORMED BY: Dr. Tracy Cohen. CLINICAL INFORMATION: Mr. Phani Salomon is a 78-year-old gentleman with a known history of CAD who underwent stenting of LAD about 2-3 years ago. In May of this year he came in with a non-ST- elevation WI and underwent stenting of the second obtuse marginal, which had a 90% stenosis. At that time there was a moderate lesion in the first OM which was not stented. There was an ostial lesion at that time. He presented to the hospital with chest pain and mild troponin elevation and was advised cardiac catheterization after due discussion regarding risks, benefits and options. PROCEDURE NOTE: Under local anesthesia and strict aseptic precautions, a 6-English introducer was placed in the right radial artery. Using an Ultimate 1 catheter I performed selective coronary angiography of the left coronary artery. Using a standard right Cody catheter, I performed selective coronary angiography of the right coronary artery. I had difficulty advancing the catheter into the LV and therefore LV pressures were not obtained. There was tortuosity at the junction of the brachiocephalic artery and the aorta. The patient tolerated the procedure well without complication. The sheath was taken out and TR band applied as per protocol with good saturation in the fingers of the right hand. CORONARY ANGIOGRAPHY FINDINGS: LEFT MAIN CORONARY ARTERY: This is a short, patent, disease-free vessel that immediately bifurcates into LAD and circumflex. Left main itself is free of significant disease. LEFT ANTERIOR DESCENDING CORONARY ARTERY: Good-caliber vessel, has a previously placed stent in the junction of the proximal and middle one third. No significant disease is noted. Beyond the stented segment caliber decreases. It runs all the way to the apex. In the apical portion of the LAD, there is almost a subtotal lesion, but this is at the terminal branch, unchanged from before. Septal branches are free of significant disease, and 2 good-sized diagonal branches are also free of significant disease. LEFT POSTERIOR CIRCUMFLEX CORONARY ARTERY: Technically this is a nondominant vessel of good caliber and distribution. As it comes off from the left main, it is free of significant disease. First OM has an ostial lesion of about 75%, best seen in the caudal projection. Beyond it there is a 30% to 40% narrowing. Second obtuse marginal that was stented is widely patent. Distally there is another 40% blockage, and it then trifurcates into 3 small branches. The first OM therefore has an ostial 75% stenosis which is significant. This is a moderate-caliber and moderate-distribution vessel. RIGHT CORONARY ARTERY: This is a good-caliber, dominant vessel. It has no significant disease and distally it bifurcates into a large PDA, a smaller PLV, both of which are free of significant disease. RCA has minor irregularities and no significant disease. Left ventriculogram was not performed. FINAL IMPRESSION: This patient has a widely patent second obtuse marginal that was stented before. The first obtuse marginal has an ostial lesion right at the takeoff. This is a relatively high-risk bifurcation lesion with the main circumflex being free of significant disease. RCA is dominant and disease-free. LAD stent is patent and has no significant disease other than the distal LAD at the apical portion, where there is a subtotal unchanged lesion. LV pressures were not obtained. RECOMMENDATIONS: I am recommending that we pursue medical therapy first and then perform outpatient stress test to assess the amount of ischemia subtended by the first obtuse marginal; and if it is significant, we will consider intervention at that time, but we will first give a trial of medical therapy. I explained this to the patient and family. He will be discharged later on today if he remains stable. Moderate conscious sedation time was 27 minutes. His oxygen saturation, hemodynamics and EKG were monitored closely. IVIS / ANIBAL: [id number] / MIS
[2018-10-22] MEDS ORDERED: LOSARTAN 50 MG TAB PO SCH (21:00)
[2018-10-22] MEDS: CLOPIDOGREL 75 MG TAB PO SCH (21:45)
[2018-10-23] MEDS: SODIUM CHLORIDE 0.9% 1,000 ML IV SCH (01:57)
[2018-10-23 04:59] VITALS: RESP 16
[2018-10-23 08:09] LABS: Basophils % (A) 1 %; Eosinophils # (A) 0.2 k/uL (0-0.7); Eosinophils % (A) 4 %; HCT 39.8 % (39.0-53.0); HGB 13.2 gm/dL (13.0-17.5); Lymphocytes % (A) 19 %; MCH 30.1 pg (25.0-35.0); MCHC 33.3 g/dL (31.0-37.0); MCV 90.5 fL (80.0-100.0); Monocytes # (A) 0.3 k/uL (0-1.0); Monocytes % (A) 6 %; Neutrophils # (A) 3.8 k/uL (1.3-7.7); Neutrophils % (A) 69 %; Platelet Count 210 k/uL (150-450); RDW 13.7 % (11.5-15.5); WBC 5.5 k/uL (3.8-10.6)
[2018-10-23] MEDS: MULTIVITAMINS, THERA 1 EACH TAB PO SCH (08:25)
[2018-10-23] MEDS: CALCIUM CARB-VIT D 500MG-200UN 1 EACH TAB PO SCH ×2 (08:25→13:41)
[2018-10-23] MEDS: ASCORBIC ACID 500 MG TAB PO SCH (08:27)
[2018-10-23 08:29] LABS: Anion Gap 7 mmol/L; Blood Urea Nitrogen 19 mg/dL (9-20); Calcium 9.5 mg/dL (8.4-10.2); Carbon Dioxide 25 mmol/L (22-30); Chloride 110 mmol/L (98-107); Glucose 124 mg/dL (74-99); Potassium 4.3 mmol/L (3.5-5.1); Sodium 142 mmol/L (137-145)
[2018-10-23] MEDS ORDERED: ASPIRIN 81 MG PO SCH (09:00)
[2018-10-23] MEDS ORDERED: ATORVASTATIN 40 MG TAB PO SCH (09:00)
[2018-10-23] MEDS ORDERED: METOPROLOL TARTRATE 25 MG TAB PO SCH (09:00)
--- NOTE | 2018-10-23 09:09 | P.PN ---
Subjective Progress Note Date: 10/23/18 Principal diagnosis: Chest pain This is a pleasant 78-year-old gentleman with a past medical history significant for coronary artery disease and prior coronary artery stenting of the left circumflex essentially presented to the hospital complaining of chest discomfort. He was ruled in for acute non-ST patient myocardial infarction. He underwent a coronary angiogram yesterday which I reviewed and discussed with Dr. CARLY Cohen and the coronary angiogram revealed intermediate to severe disease involving the ostial of the first obtuse marginal branch of the circumflex and we did advise maximize medical treatment giving such and anatomy. I did follow-up with the patient today, October [id number], he was chest pain-free. From the cardiac standpoint of view, the patient can be discharged home. Objective - Vital Signs Vital signs: Vital Signs Temp 97.3 F L 10/23/18 08:00 Pulse 70 10/23/18 08:00 Resp 16 10/23/18 08:00 BP 163/76 10/23/18 08:00 Pulse Ox 97 10/23/18 08:00 Intake & Output 10/22/18 10/23/18 10/23/18 18:59 06:59 18:59 Intake Total 200 200 Output Total 200 Balance 200 0 Intake: IV 100 200 Sodium Chloride 0.9% 1, 200 000 ml @ 100 mls/hr IV . Q10H TRINY Rx#:[id number] Oral 100 Output: Urine 200 Other: Voiding Method Toilet Toilet # Voids 2 - Constitutional General appearance: Present: no acute distress - Respiratory Respiratory: bilateral: CTA - Cardiovascular Rhythm: regular Heart sounds: normal: S1, S2 - Labs CBC & Chem 7: 10/23/18 07:54 10/23/18 07:54 Labs: Abnormal Lab Results - Last 24 Hours (Table) 10/23/18 Range/Units 07:54 Chloride 110 H (98-107) mmol/L Glucose 124 H (74-99) mg/dL Assessment and Plan Assessment: Assessment #1 acute non-ST elevation myocardial infarction #2 known CAD with prior revascularization as described above #3 hypertension #4 dyslipidemia Plan #1 continue the current medical regimen #2 add oral nitrates the current medical regimen #3 the patient can be discharged home
[2018-10-23 12:12] VITALS: BP 150/77; PULSE 55; TEMP 98.6
--- NOTE | 2018-10-24 07:59 | P.PN ---
Progress Note - Text Discussed with Dr. Puri Patient presented with with angina Cardiac catheterization revealed progression of an ostial obtuse marginal steno sis of up to 70% Previously placed stented areas were completely patent Since this is at the ostium of the obtuse marginal and has a large left circumflex it was recommended that is medical treatment be maximized particularly the addition of the CS 9 in addition to Crestor He has myopathy with statins and can barely tolerate 10 mg of Crestor Suggest Maximal medical treatment Addition of PC SK 9 inhibitors in addition to Crestor for management of atherosclerosis Stress testing thereafter
[2018-10-24] MEDS ORDERED: ISOSORBIDE MONONITRATE ER 30 MG TAB.ER.24H PO SCH (09:00)
== END 2018-10-23 13:36 | disposition home or self-care (01) | DRG 282 ==
LOC: EC 15:10 → 1SOBS 19:22 → OBSVTOIN 10-22 13:35
PROVIDERS: ADMIT Hospitalist; ATTEND Hospitalist
PROC: B2161ZZ Fluoroscopy of Right and Left Heart using Low Osmolar Contrast (ICD-10-PCS; principal; 2018-10-22 12:32)
PROC: 4A023N7 Measurement of Cardiac Sampling and Pressure, Left Heart, Percutaneous Approach (ICD-10-PCS; principal; 2018-10-22 12:32)
DX: I21.4 Non-ST elevation (NSTEMI) myocardial infarction (principal); E78.5 Hyperlipidemia, unspecified; I10 Essential (primary) hypertension; I25.119 Atherosclerotic heart disease of native coronary artery with unspecified angina pectoris; I45.10 Unspecified right bundle-branch block; K21.9 Gastro-esophageal reflux disease without esophagitis; M19.90 Unspecified osteoarthritis, unspecified site; N40.0 Benign prostatic hyperplasia without lower urinary tract symptoms; I25.2 Old myocardial infarction; Z79.02 Long term (current) use of antithrombotics/antiplatelets; Z79.82 Long term (current) use of aspirin; Z79.899 Other long term (current) drug therapy; Z80.6 Family history of leukemia; Z82.49 Family history of ischemic heart disease and other diseases of the circulatory system; Z95.5 Presence of coronary angioplasty implant and graft; Z98.890 Other specified postprocedural states; Z81.8 Family history of other mental and behavioral disorders
CPT/HCPCS: 36415; 71046; 80048; 80053; 80061; 84484; 85025; 85610; 85730; 93005; 93306; 93458; 99285

== ENCOUNTER 2019-12-15 12:50 | Day surgery (SDC) | payer MEDICARE, BC ==
[2019-12-11 11:57] VITALS: BMI 28.7
[~2019-12-15 12:50] MED LIST: LACTATED RINGERS 1,000 ML IV SCH
[2019-12-15] MEDS ORDERED: SODIUM CHLORIDE 0.9% 1,000 ML IV ONE (13:20)
[2019-12-15 13:30] LABS: Basophils % (A) 1 %; Eosinophils # (A) 0.3 k/uL (0-0.7); Eosinophils % (A) 3 %; HGB 13.7 gm/dL (13.0-17.5); Lymphocytes # (A) 1.9 k/uL (1.0-4.8); Lymphocytes % (A) 25 %; MCHC 33.6 g/dL (31.0-37.0); MCV 92.5 fL (80.0-100.0); Monocytes # (A) 0.5 k/uL (0-1.0); Monocytes % (A) 7 %; Neutrophils # (A) 4.6 k/uL (1.3-7.7); Neutrophils % (A) 62 %; Platelet Count 220 k/uL (150-450); RBC 4.43 m/uL (4.30-5.90); RDW 12.9 % (11.5-15.5); WBC 7.4 k/uL (3.8-10.6)
[2019-12-15 13:44] LABS: African American GFR (CKD) >90 (>60 ml/min/1.73 sqM); Anion Gap 6 mmol/L; Blood Urea Nitrogen 15 mg/dL (9-20); Calcium 8.9 mg/dL (8.4-10.2); Carbon Dioxide 27 mmol/L (22-30); Chloride 108 mmol/L (98-107); Glucose 89 mg/dL (74-99); Non-African American GFR(CKD) 84 (>60 ml/min/1.73 sqM); Potassium 4.3 mmol/L (3.5-5.1); Sodium 141 mmol/L (137-145)
[2019-12-15] MEDS ORDERED: ISOPROTERENOL 250 MCG/1.25 ML SYR IV ONE (15:02)
[2019-12-15] MEDS ORDERED: METOPROLOL TARTRATE 5 MG/5 ML VIAL IVP ONE (15:02)
[2019-12-15] MEDS ORDERED: NEOSTIGMINE 1 MG/ML 10 ML VIAL ONE (15:02)
[2019-12-15] MEDS ORDERED: GLYCOPYRROLATE 0.2 MG/ML 2 ML VIAL ONE (15:02)
[2019-12-15] MEDS ORDERED: ePHEDrine SULFATE/0.9% NACL/PF 50 MG/5 ML SYRINGE IV ONE (15:02)
[2019-12-15] MEDS ORDERED: MIDAZOLAM 2 MG/2 ML VIAL ONE (15:02)
[2019-12-15] MEDS ORDERED: fentaNYL (PF) 50 MCG/ML 2 ML AMP ONE (15:02)
[2019-12-15] MEDS ORDERED: ROCURONIUM BROMIDE 10 MG/ML 5 ML VIAL IV ONE (15:02)
[2019-12-15] MEDS ORDERED: PROPOFOL 10 MG/ML 20 ML VIAL IV ONE (15:02)
[2019-12-15] MEDS ORDERED: LIDOCAINE 1% INJ 10MG/ML (20 ML MDV) ONE ×2 (15:02→15:12)
[2019-12-15] MEDS ORDERED: SUCCINYLCHOLINE CHLORIDE 100 MG/5 ML SYR IV ONE (15:02)
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
[2019-12-15] MEDS ORDERED: LIDOCAINE 1% INJ 10MG/ML (20 ML MDV) SQ ONE (15:51)
[2019-12-15] MEDS ORDERED: HEPARIN SODIUM (1,000 UNIT/ML) 1,000 UNIT in SODIUM CHLORIDE 0.9% 1,000 ML IRRIGATION ONE (16:00)
[2019-12-15] MEDS ORDERED: ACETAMINOPHEN IV (For NPO) 1,000 MG in EMPTY BAG 1 BAG IVPB ONE (17:35)
[2019-12-15] MEDS ORDERED: HYDROcodone/APAP 5-325MG 1 EACH TAB PO PRN (17:35)
[2019-12-15] MEDS ORDERED: ACETAMINOPHEN TAB 325 MG TAB PO PRN (17:35)
[2019-12-15] MEDS ORDERED: NITROGLYCERIN SL TABS 0.4 MG TAB SUBLINGUAL PRN (17:36)
[2019-12-15] MEDS: APIXABAN 5 MG TAB PO SCH (21:50)
[2019-12-15] MEDS: SODIUM CHLORIDE 0.9% 1,000 ML IV SCH (21:57)
[2019-12-16] MEDS: SODIUM CHLORIDE 0.9% 1,000 ML IV SCH (02:58)
--- NOTE | 2019-12-16 03:23 | CE ---
CARDIAC ELECTROPHYSIOLOGY REPORT Mr. Phani Salomon is a gentleman with history of recurrent atrial fibrillation, recurrent atrial flutter, long post-conversion pauses, underlying sick sinus syndrome and bradycardia. He is brought in for an atrial flutter ablation. The patient is brought to the EP lab in a fasting state. Written informed consent was obtained prior to the procedure. Right and left groins were prepped and draped as per protocol and 1% lidocaine was used for local anesthesia. Two venous sheaths were placed in the left femoral vein and one venous sheath in the right femoral vein. A long sheath was placed. Coronary sinus catheter was placed. Mapping and ablation catheter was placed. An intracardiac echo catheter was placed. The catheter was then moved to the high right atrium, His bundle area, RV and to the coronary sinus. The patient was in sinus rhythm at the start of the study. Sinus cycle length 1007 milliseconds, QRS 149 millisecond, right bundle branch block pattern, IA interval 174 milliseconds, QT interval 472 milliseconds. AH interval 93 milliseconds, HV interval 46 milliseconds. Sinus node recovery times at 600, 500 and 400 milliseconds were 1179, 1110, 1036 milliseconds. Corresponding corrected sinus node recovery times were within normal limits. AV node Wenckebach block 400 milliseconds. VA Wenckebach block 400 milliseconds. A 3D electroanatomic mapping of the left atria was performed. Intracardiac echo was performed. No intracardiac mass was noted. LV function was normal. No pericardial effusion was noted at baseline state. At the end of the procedure, no effusion was noted either. The 3D electroanatomical mapping of the cava tricuspid isthmus was performed. The tricuspid valve was tagged. The IVC was tagged. Eustachian ridge was tagged. A small pouch was noted in the mid isthmus. RF line of block was made in the cava tricuspid isthmus. This line was then tested and interrogated with high-output pacing, split potentials during pacing as well as differential pacing. Complete bidirectional block was noted with differential pacing. At the end of the procedure, non capture was noted all along the line. Thereafter, high-dose Isuprel was used. Pacing maneuvers were performed. No other arrhythmias were induced at the end of the procedure on Isuprel. All catheters were then removed. The patient was transferred back to telemetry. RESULT: Successful atrial flutter ablation with bidirectional block. MMODL / IJN: [id number] /
[2019-12-16] MEDS: APIXABAN 5 MG TAB PO SCH (08:31)
[2019-12-16] MEDS ORDERED: METOPROLOL SUCCINATE (ER) 25 MG TAB.ER.24H PO SCH (09:00)
[2019-12-16] MEDS ORDERED: ATORVASTATIN 40 MG TAB PO SCH (09:00)
[2019-12-16] MEDS ORDERED: EZETIMIBE 10 MG TAB PO SCH (09:00)
[2019-12-16] MEDS ORDERED: LOSARTAN 50 MG TAB PO SCH (09:00)
--- NOTE | 2019-12-16 09:26 | P.DS ---
Providers Attending physician: Blanco Chen Primary care physician: [facility] Course: Patient is ambulating around the hallway Norbert healed well no hematoma no swelling No lower extremity edema No JVD Blood pressure is mildly elevated but in the office his blood pressure remained in normal range on losartan 50 mg by mouth daily Normal heart sounds normal S1 normal S2 Breath sounds are clear no rhonchi no crackles Blood pressure 147/78 mmHg Impression Atrial flutter status post successful ablation yesterday Postconversion pauses Sick sinus syndrome with intermittent pauses awaiting permanent pacemaker implantation Right bundle branch block pattern Coronary artery disease status post SD in the past status post stenting Plan Discharge home by lunchtime today Continue home medications unchanged Low salt diet If his blood pressure remains elevated then we will increase the dose of losartan to 75 mg by mouth daily At a later date after permanent pacing his beta delia dose will be increased Plan - Discharge Summary Discharge Rx Participant: No New Discharge Prescriptions: No Action Multivitamins, Thera [Multivitamin (formulary)] 1 tab PO DAILY Ascorbic Acid [Vitamin C] 1,000 mg PO DAILY Calcium Carb-Vit D 500Mg-200Un [Oscal 500+D] 1 tab PO QID Elburn-3 Fatty Acids [Elburn-3] 2,000 mg PO DAILY Rosuvastatin [Crestor] 20 mg PO DAILY Metoprolol Succinate (ER) [Toprol XL] 12.5 mg PO DAILY #30 tab.er.24h Nitroglycerin Sl Tabs [Nitrostat] 0.4 mg PO Q5M PRN PRN Reason: Chest Pain Ezetimibe [Zetia] 10 mg PO DAILY Apixaban [Eliquis] 5 mg PO BID Losartan [Cozaar] 50 mg PO DAILY Evolocumab [Repatha Syringe] 140 mg INJ Q14D Discharge Medication List Ascorbic Acid [Vitamin C] 1,000 mg PO DAILY 12/22/13 [History] Calcium Carb-Vit D 500Mg-200Un [Oscal 500+D] 1 tab PO QID 12/22/13 [History] Multivitamins, Thera [Multivitamin (formulary)] 1 tab PO DAILY 12/22/13 [History] Elburn-3 Fatty Acids [Elburn-3] 2,000 mg PO DAILY 12/22/13 [History] Rosuvastatin [Crestor] 20 mg PO DAILY 06/02/18 [History] Metoprolol Succinate (ER) [Toprol XL] 12.5 mg PO DAILY #30 tab.er.24h 06/04/18 [Rx] Nitroglycerin Sl Tabs [Nitrostat] 0.4 mg PO Q5M PRN 10/21/18 [History] Apixaban [Eliquis] 5 mg PO BID 12/11/19 [History] Evolocumab [Repatha Syringe] 140 mg INJ Q14D 12/11/19 [History] Ezetimibe [Zetia] 10 mg PO DAILY 12/11/19 [History] Losartan [Cozaar] 50 mg PO DAILY 12/11/19 [History] Follow up Appointment(s)/Referral(s): Blanco Chen MD [STAFF PHYSICIAN] - 1 Week (follow up with Dr. Chen/Celia Rogers/Eliza Ponce in one week) Activity/Diet/Wound Care/Special Instructions: Post EP study - Ablation instructions 1. Keep access sites dry for 2 days. 2. No heavy lifting or straining for 2 days. 3. Avoid bending the hips repeatedly for 2 days. 4. You may go up and down stairs slowly Call if the following is noted 1. Bleeding, increasing swelling or pain at the access sites. 2. Increasing chest discomfort, especially upon taking a deep breath. 3. Increasing shortness of breath, at rest or with exertion. 4. Undue cough / phlegm 5. Difficulty or pain while swallowing. 6. Pain or change in color in the extremities. 7. Fever, chills, rigors. 8. Increasing headache or neurologic symptoms. 9. Dizziness, fainting, palpitations Continue current cardiac medication regimen including eliquis Discharge Disposition: HOME SELF-CARE
[2019-12-16] MEDS ORDERED: TAMSULOSIN 0.4 MG CAP.ER.24H PO STA (12:33)
[2019-12-16 17:52] VITALS: BP 167/94; PULSE 81; RESP 16; TEMP 99
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
[2019-12-17] MEDS ORDERED: TAMSULOSIN 0.4 MG CAP.ER.24H PO SCH (08:30)
== END 2019-12-16 20:30 | disposition home or self-care (01) ==
LOC: CATHEP 12:50 → 3NCARDOBS 17:29 → CATHEP 12-16 20:30
PROVIDERS: ATTEND Internal Medicine Clinical Cardiac Electrophysiology
DX: I48.92 Unspecified atrial flutter (principal); I48.0 Paroxysmal atrial fibrillation; I49.5 Sick sinus syndrome; N99.89 Other postprocedural complications and disorders of genitourinary system; R33.8 Other retention of urine; I25.10 Atherosclerotic heart disease of native coronary artery without angina pectoris; I10 Essential (primary) hypertension; K21.9 Gastro-esophageal reflux disease without esophagitis; E78.5 Hyperlipidemia, unspecified; I25.2 Old myocardial infarction; Z86.010 Personal history of colon polyps; M19.90 Unspecified osteoarthritis, unspecified site; N40.0 Benign prostatic hyperplasia without lower urinary tract symptoms; Z95.5 Presence of coronary angioplasty implant and graft; Z98.890 Other specified postprocedural states; Z80.6 Family history of leukemia; Z82.0 Family history of epilepsy and other diseases of the nervous system; Z82.49 Family history of ischemic heart disease and other diseases of the circulatory system; Z79.01 Long term (current) use of anticoagulants; Z79.02 Long term (current) use of antithrombotics/antiplatelets; Z79.82 Long term (current) use of aspirin; Z79.899 Other long term (current) drug therapy
CPT/HCPCS: 93653; 93623; 93613; 80048; 85025; C1894; C1769 ×2; C1730; C1759; C1893; C1732; J2250; J2710; J2001; J3010; J1644; J0330; J2704

== ENCOUNTER 2019-12-31 08:25 | Day surgery (SDC) | payer MEDICARE, BC ==
[2019-12-24 14:25] VITALS: BMI 28.7
[2019-12-31] MEDS ORDERED: ceFAZolin 1,000 MG in SODIUM CHLORIDE 0.9% IRRIGATIO 250 ML IRRIGATION ONE (08:30)
[2019-12-31] MEDS: SODIUM CHLORIDE 0.9% 1,000 ML IV SCH ×3 (08:43→14:36)
[2019-12-31] MEDS ORDERED: LIDOCAINE 1% INJ 10MG/ML (20 ML MDV) ONE ×2 (09:14→10:21)
[2019-12-31] MEDS ORDERED: PROPOFOL 10 MG/ML 20 ML VIAL IV ONE (09:19)
[2019-12-31] MEDS ORDERED: MIDAZOLAM 2 MG/2 ML VIAL ONE (09:19)
[2019-12-31] MEDS ORDERED: fentaNYL (PF) 50 MCG/ML 2 ML AMP ONE (09:19)
[2019-12-31] MEDS ORDERED: IOPAMIDOL-250 50ML BTL IV ONE (09:34)
[2019-12-31] MEDS ORDERED: LIDOCAINE 1% INJ 10MG/ML (20 ML MDV) SQ ONE ×3 (10:12→10:24)
[2019-12-31] MEDS ORDERED: CLOPIDOGREL 75 MG TAB PO STA (12:18)
[2019-12-31] MEDS ORDERED: HYDROcodone/APAP 5-325MG 1 EACH TAB PO PRN (12:19)
[2019-12-31] MEDS ORDERED: ACETAMINOPHEN TAB 325 MG TAB PO PRN (12:19)
--- NOTE | 2019-12-31 12:28 | P.PRLE ---
RE: Phani Salomon Dear Dr. Singh Patient underwent successful pacemaker implantation for sick sinus syndrome and symptomatic bradycardia He will go back on a higher dose of metoprolol now 25 mg by mouth daily metoprolol succinate Since his atrial fibrillation he will continue ELIQUIS Since he has coronary artery disease status post coronary stenting he needs antiplatelet therapy and should continue Plavix In patients who have atrial fibrillation and coronary stenting/coronary artery disease, dual therapy with ELIQUIS plus Plavix is recommended instead of triple therapy, to reduce bleeding risks Thank you for entrusting me with the care of the patient Warm regards Sincerely Blanco Chen
[2019-12-31] MEDS: LACTATED RINGERS 1,000 ML IV SCH (13:40)
[2019-12-31] MEDS ORDERED: ACETAMINOPHEN IV (For NPO) 1,000 MG in EMPTY BAG 1 BAG IVPB ONE (15:00)
[2019-12-31] MEDS: APIXABAN 5 MG TAB PO SCH (20:17)
--- NOTE | 2019-12-31 21:07 | PCN ---
PROCEDURE NOTE Phani Salomon is a 79-year-old male patient, sick sinus syndrome with symptoms of dizziness. We had to back off on the dose of metoprolol even though he had coronary artery disease with angina. He was brought in for a permanent pacemaker implantation. The patient brought to the EP lab in a fasting state. Written informed consent was obtained prior to the procedure. The left shoulder area was prepped and draped as per protocol. 1% lidocaine was used for local anesthesia. A 4 cm incision was made parallel to the deltopectoral groove, about 1.5 cm medial to it. The incision was carried down to the level of the pectoralis muscle. A subfascial pocket was made. Hemostasis was assured. The left axillary vein was accessed at 3 different points under fluoroscopy and via appropriately-sized introducer sheaths, 3 leads were positioned. The atrial lead was a Medtronic model #4574, 53 cm in length and serial number [id number]. The P waves were 3 mV. Pacing impedance 665 ohms, pacing threshold 0.25 V at 0.4 milliseconds. 10 V test was negative. The RV lead was a model #5076, 58 cm in length and serial number [id number]. The R- waves 8 mV, pacing impedance 969 ohms, pacing threshold 1 V at 0.4 milliseconds 10 V test negative. His bundle lead was attempted. Finding a good HIS signal took some time. HIS bundle was mapped very carefully and finally we obtained his signal with HV interval of about 47 milliseconds and was screwed in and nonselective capture was noted down to 1.3 mV, followed by a ventricular capture and then total complete loss of capture at around 0.6 V. However, the sheath was cut demonstrating micro dislodgement. There was increase in the thresholds. This was attempted again with a different sheath and a different lead and we had a large current of injury with HIS mapping. The lead was screwed in again. Once again, excellent thresholds were obtained and nonselective capture was obtained but this lead was not stable. Therefore, HIS bundle lead was removed and a dual-chamber pacemaker was implanted ([employer] Shira SDR MRI model number W3DR01, serial number [id number]). Leads and generator were then placed a subfascial pocket. The wound was closed in 3 layers and dressed per protocol. RESULTS: Successful dual-chamber pacemaker implantation for symptomatic sick sinus syndrome. PLAN: 1. Increase metoprolol dose. 2. The patient had stopped taking Plavix, but I have instructed the that he should go back to Plavix and continue Eliquis both since he has coronary artery disease status post coronary stenting, status post [place] as well as atrial fibrillation. MMODL / IJN: [id number] /
[2020-01-01] MEDS: SODIUM CHLORIDE 0.9% 1,000 ML IV SCH ×2 (02:02→02:03)
[2020-01-01] MEDS: LACTATED RINGERS 1,000 ML IV SCH (06:38)
--- NOTE | 2020-01-01 07:18 | XR ---
EXAMINATION TYPE: XR chest 2V DATE OF EXAM: 01/01/2020 COMPARISON: Chest x-ray October 21, 2018. HISTORY: Status post pacemaker insertion. TECHNIQUE: Frontal and lateral views of the chest are obtained. FINDINGS: New dual-lead pacemaker with leads terminating in right atrium and right ventricle. Dimini shed inspiration on current study with patchy bibasilar atelectatic change. No pleural effusion or pn eumothorax seen bilaterally. The cardiac silhouette size is now mildly enlarged. The osseous struc tures are intact. IMPRESSION: New dual-lead pacemaker with leads terminating in right atrium and right ventricle. Dimi nished inspiration with bibasilar atelectatic change.
[2020-01-01 08:15] VITALS: BP 158/82; PULSE 63; RESP 16; TEMP 97.7
[2020-01-01] MEDS: APIXABAN 5 MG TAB PO SCH (08:39)
[2020-01-01] MEDS ORDERED: TAMSULOSIN 0.4 MG CAP.ER.24H PO SCH (09:00)
[2020-01-01] MEDS ORDERED: EZETIMIBE 10 MG TAB PO SCH (09:00)
[2020-01-01] MEDS ORDERED: METOPROLOL SUCCINATE (ER) 25 MG TAB.ER.24H PO SCH (09:00)
[2020-01-01] MEDS ORDERED: LOSARTAN 50 MG TAB PO SCH (09:00)
[2020-01-01] MEDS ORDERED: ATORVASTATIN 40 MG TAB PO SCH (09:00)
--- NOTE | 2020-01-01 13:10 | P.DS ---
Providers Attending physician: Blanco Chen Primary care physician: [facility] Course: This is a pleasant 79-year-old male past medical history significant for sick sinus syndrome, coronary artery disease, dyslipidemia, hypertension and atrial flutter. He came in for elective placement of a permanent pacemaker. He is day one post successful dual-chamber pacemaker implantation with a Medtronic device. He is having no symptoms of chest pain, shortness of breath, dizziness or palpitations. Sling is in place. Blood pressure 158/82 heart rate 63 afebrile maintaining oxygen saturation on room air. Chest x-ray reveals new dual-chamber pacemaker with leads terminating in the right atrium and the right ventricle. Currently maintained on Plavix 75 mg daily, Toprol 25 mg daily, Zetia 10 mg daily, losartan 50 mg daily, rosuvastatin 20 mg daily, Flomax 0.4 mg daily, Eliquis 5 mg twice a day and repatha 140 mg injectable every 2 weeks. Stable for discharge home with post device instructions explained in great detail to the patient and his who is at the bedside. Follow up in the device clinic in 1-week and with in 3-4 months. Plan - Discharge Summary Discharge Rx Participant: No New Discharge Prescriptions: New Clopidogrel [Plavix] 75 mg PO DAILY #90 tablet Metoprolol Succinate (ER) [Toprol XL] 25 mg PO DAILY #90 tab Continue Multivitamins, Thera [Multivitamin (formulary)] 1 tab PO DAILY Calcium Carb-Vit D 500Mg-200Un [Oscal 500+D] 1 tab PO QID [place]-3 Fatty Acids [[place]imbledon-3] 2,000 mg PO DAILY Rosuvastatin [Crestor] 20 mg PO DAILY Nitroglycerin Sl Tabs [Nitrostat] 0.4 mg PO Q5M PRN PRN Reason: Chest Pain Ezetimibe [Zetia] 10 mg PO DAILY Apixaban [Eliquis] 5 mg PO BID Losartan [Cozaar] 50 mg PO DAILY Tamsulosin [Flomax] 0.4 mg PO DAILY #30 cap Discontinued Metoprolol Succinate (ER) [Toprol XL] 12.5 mg PO DAILY #30 tab.er.24h No Action Evolocumab [Repatha Syringe] 140 mg INJ Q14D Discharge Medication List Calcium Carb-Vit D 500Mg-200Un [Oscal 500+D] 1 tab PO QID 12/22/13 [History] Multivitamins, Thera [Multivitamin (formulary)] 1 tab PO DAILY 12/22/13 [History] [place]imb[place]on-3 Fatty Acids [[place]-3] 2,000 mg PO DAILY 12/22/13 [History] Rosuvastatin [Crestor] 20 mg PO DAILY 06/02/18 [History] Nitroglycerin Sl Tabs [Nitrostat] 0.4 mg PO Q5M PRN 10/21/18 [History] Apixaban [Eliquis] 5 mg PO BID 12/11/19 [History] Evolocumab [Repatha Syringe] 140 mg INJ Q14D 12/11/19 [History] Ezetimibe [Zetia] 10 mg PO DAILY 12/11/19 [History] Losartan [Cozaar] 50 mg PO DAILY 12/11/19 [History] Tamsulosin [Flomax] 0.4 mg PO DAILY #30 cap 12/16/19 [Rx] Clopidogrel [Plavix] 75 mg PO DAILY #90 tablet 12/31/19 [Rx] Metoprolol Succinate (ER) [Toprol XL] 25 mg PO DAILY #90 tab 12/31/19 [Rx] Follow up Appointment(s)/Referral(s): Blanco Chen MD [STAFF PHYSICIAN] - 1 Week (Device clinic follow-up in 1 week Follow-up Dr. Chen in 3-4 months, Follow-up with Dr. Chen/Celia Rogers/Eliza Ponce) Activity/Diet/Wound Care/Special Instructions: PATIENT EDUCATION MATERIAL Instructions following a heart rhythm device implant. 1. Keep dressing DRY for 5 DAYS. You may cover the area with Saran or Cling Wrap, prior to a shower. 2. The dressing will be removed in the Device Clinic at [facility]. Absorbable sutures were used to close the wound. 3. Avoid raising the left arm above the shoulder level. 4 week restriction 4. Avoid arm movements, like backscratching, rubbing the head, or pulling on a cord. 4 weeks restriction 5. Gentle range of motion movements of the shoulder, closest to the incision should be performed to avoid a frozen shoulder. (Pendulum exercises of the shoulder) 6. The opposite arm may be used freely. 7. Avoid driving for 7 days. 8. Avoid activities such as golfing, swimming, weed whacking, lifting more than 10 pounds weight, bowling, gymnastics and weight training/lifting. (6 weeks restriction) 9. Activities such as wood chopping with an axe, pull-ups in the gymnasium, power lifting, arc-welding, being close to home induction cooktops will always be a problem. 10. Arm sling is only a reminder not to raise the arm above the head. You do not need to keep the arm completely immobilized. Your free to move the arm and use it and for normal activities. In case of any problems, please call [facility], [place], @ [phone], Attention: Device Clinic Device clinic follow-up in 7 days Follow-up with primary lamps tester and inspector in 3-4 months Patient instructed to take ELIQUIS and Plavix both
== END 2020-01-01 13:38 | disposition home or self-care (01) ==
LOC: CATHEP 08:25 → 3NCARDOBS 12:47 → CATHEP 01-01 13:38
PROVIDERS: ATTEND Internal Medicine Clinical Cardiac Electrophysiology
DX: I49.5 Sick sinus syndrome (principal); I25.10 Atherosclerotic heart disease of native coronary artery without angina pectoris; I25.2 Old myocardial infarction; I48.92 Unspecified atrial flutter; I11.0 Hypertensive heart disease with heart failure; I50.9 Heart failure, unspecified; I45.10 Unspecified right bundle-branch block; E78.5 Hyperlipidemia, unspecified; G47.30 Sleep apnea, unspecified; K21.9 Gastro-esophageal reflux disease without esophagitis; Z79.01 Long term (current) use of anticoagulants; Z79.82 Long term (current) use of aspirin; Z79.02 Long term (current) use of antithrombotics/antiplatelets; Z79.899 Other long term (current) drug therapy; Z95.5 Presence of coronary angioplasty implant and graft; Z82.49 Family history of ischemic heart disease and other diseases of the circulatory system
CPT/HCPCS: 33208; 71046; C1769 ×4; C1892; C1898 ×2; J2250; J0690 ×2; J2001; J3010; J0131; J2704; Q9966

== ENCOUNTER 2020-08-02 12:32 | Emergency (ER) | payer MEDICARE, BC ==
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
[2020-08-02] MEDS ORDERED: ASPIRIN 81 MG PO STA (13:18)
--- NOTE | 2020-08-02 13:48 | XR ---
EXAMINATION TYPE: XR chest 2V DATE OF EXAM: 08/02/2020 COMPARISON: Prior chest x-ray January 01, 2020. HISTORY: Chest pain and shortness of breath. TECHNIQUE: Frontal and lateral views of the chest are obtained. FINDINGS: There is chronic parenchymal change without suspicious new focal air space opacity, pleura l effusion, or pneumothorax seen. The cardiac silhouette size is stable and upper limits of normal w ith dual-lead pacemaker redemonstrated. The osseous structures are intact. IMPRESSION: Chronic changes without acute pulmonary process.
[2020-08-02 13:54] LABS: Basophils % (A) 1 %; Eosinophils # (A) 0.4 k/uL (0-0.7); Eosinophils % (A) 5 %; HCT 40.2 % (39.0-53.0); HGB 13.5 gm/dL (13.0-17.5); Lymphocytes # (A) 1.5 k/uL (1.0-4.8); Lymphocytes % (A) 19 %; MCH 30.7 pg (25.0-35.0); MCHC 33.5 g/dL (31.0-37.0); MCV 91.7 fL (80.0-100.0); Mean Platelet Volume 6.5; Monocytes # (A) 0.5 k/uL (0-1.0); Monocytes % (A) 7 %; Neutrophils # (A) 5.1 k/uL (1.3-7.7); Neutrophils % (A) 66 %; Platelet Count 242 k/uL (150-450); RBC 4.38 m/uL (4.30-5.90); RDW 12.5 % (11.5-15.5); WBC 7.7 k/uL (3.8-10.6)
[2020-08-02 14:04] LABS: Partial Thromboplastin Time 24.7 sec (22.0-30.0); Prothrombin Time 10.9 sec (9.0-12.0)
[2020-08-02] MEDS ORDERED: dexAMETHasone 4 MG TAB PO STA (14:07)
[2020-08-02 14:17] LABS: ALT 26 U/L (4-49); AST 28 U/L (17-59); African American GFR (CKD) >90 (>60 ml/min/1.73 sqM); Albumin 3.7 g/dL (3.5-5.0); Alkaline Phosphatase 66 U/L (38-126); Anion Gap 8 mmol/L; Blood Urea Nitrogen 18 mg/dL (9-20); Calcium 8.8 mg/dL (8.4-10.2); Carbon Dioxide 23 mmol/L (22-30); Chloride 107 mmol/L (98-107); Glucose 110 mg/dL (74-99); Magnesium 2.1 mg/dL (1.6-2.3); Non-African American GFR(CKD) 82 (>60 ml/min/1.73 sqM); Potassium 4.4 mmol/L (3.5-5.1); Sodium 138 mmol/L (137-145); Total Bilirubin 0.4 mg/dL (0.2-1.3); Total Protein 6.3 g/dL (6.3-8.2)
[2020-08-02 15:12] VITALS: BP 131/74; PULSE 65; RESP 16; TEMP 98.2
== END 2020-08-02 15:11 | disposition home or self-care (01) ==
LOC: EC 12:32
DX: R07.9 Chest pain, unspecified (principal); E78.5 Hyperlipidemia, unspecified; I10 Essential (primary) hypertension; I25.10 Atherosclerotic heart disease of native coronary artery without angina pectoris; I25.2 Old myocardial infarction; I48.91 Unspecified atrial fibrillation; K21.9 Gastro-esophageal reflux disease without esophagitis; M19.90 Unspecified osteoarthritis, unspecified site; Z79.01 Long term (current) use of anticoagulants; Z79.02 Long term (current) use of antithrombotics/antiplatelets; Z79.899 Other long term (current) drug therapy
CPT/HCPCS: 36415; 71046; 80053; 83735; 84484; 85025; 85610; 85730; 93005; 99285

== ENCOUNTER 2021-01-29 14:12 | Inpatient (IN) | payer MEDICARE, BC ==
[2021-01-29] MEDS ORDERED: DILTIAZEM DRIP BOLUS FROM BAG 1 MG SOLN IV ONE (14:27)
[2021-01-29] MEDS ORDERED: SODIUM CHLORIDE 0.9% 500 ML 500 ML IV ONE (14:28)
[2021-01-29] MEDS ORDERED: MORPHINE SULFATE 2 MG/ML SYRINGE IVP STA (14:28)
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
[2021-01-29 14:44] LABS: Basophils % (A) 1 %; Eosinophils # (A) 0.2 k/uL (0-0.7); Eosinophils % (A) 4 %; HCT 38.8 % (39.0-53.0); HGB 13.4 gm/dL (13.0-17.5); Lymphocytes # (A) 1.8 k/uL (1.0-4.8); Lymphocytes % (A) 29 %; MCH 32.1 pg (25.0-35.0); MCHC 34.6 g/dL (31.0-37.0); MCV 92.7 fL (80.0-100.0); Mean Platelet Volume 7.1; Monocytes # (A) 0.5 k/uL (0-1.0); Monocytes % (A) 8 %; Neutrophils # (A) 3.5 k/uL (1.3-7.7); Neutrophils % (A) 55 %; Platelet Count 237 k/uL (150-450); RBC 4.19 m/uL (4.30-5.90); RDW 13.5 % (11.5-15.5); WBC 6.3 k/uL (3.8-10.6)
[2021-01-29] MEDS: DILTIAZEM 125 MG in SODIUM CHLORIDE 0.9% 100 ML IV SCH (14:50)
[2021-01-29 14:56] LABS: Albumin 3.6 g/dL (3.5-5.0); Calcium 8.9 mg/dL (8.4-10.2); Magnesium 2.1 mg/dL (1.6-2.3); Partial Thromboplastin Time 23.8 sec (22.0-30.0); Prothrombin Time 10.7 sec (9.0-12.0); Total Bilirubin 0.4 mg/dL (0.2-1.3); Total Protein 6.1 g/dL (6.3-8.2)
[2021-01-29] MEDS ORDERED: HEPARIN SODIUM 1,000 UN/ML (10ML VL) IV PRN (15:19)
[2021-01-29] MEDS ORDERED: HEPARIN SODIUM 1,000 UN/ML (10ML VL) IV ONE (15:19)
[2021-01-29] MEDS ORDERED: NALOXONE 0.4 MG/ML 1 ML VIAL IV PRN (15:25)
[2021-01-29] MEDS ORDERED: ACETAMINOPHEN TAB 325 MG TAB PO PRN (15:25)
--- NOTE | 2021-01-29 15:51 | XR ---
EXAMINATION TYPE: XR chest 2V DATE OF EXAM: 01/29/2021 COMPARISON: 08/02/2020 HISTORY: Chest pain TECHNIQUE: FINDINGS: There is no heart failure nor confluent pneumonic infiltrate. There is left axillary pacema ker. There are no hilar masses. Mediastinum is normal. There is no pleural effusion. IMPRESSION: No active cardiopulmonary disease. No change.
[2021-01-29] MEDS: HEPARIN SOD,PORK IN 0.45% NACL 25,000 UNIT in 0.45% NACL 1 250ML.BAG IV SCH (15:57)
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
[2021-01-30 08:00] LABS: Basophils % (A) 1 %; Eosinophils # (A) 0.2 k/uL (0-0.7); Eosinophils % (A) 3 %; HCT 38.1 % (39.0-53.0); HGB 12.9 gm/dL (13.0-17.5); Lymphocytes # (A) 1.4 k/uL (1.0-4.8); Lymphocytes % (A) 24 %; MCH 31.6 pg (25.0-35.0); MCHC 33.7 g/dL (31.0-37.0); MCV 93.6 fL (80.0-100.0); Mean Platelet Volume 6.9; Monocytes # (A) 0.3 k/uL (0-1.0); Monocytes % (A) 6 %; Neutrophils # (A) 3.7 k/uL (1.3-7.7); Neutrophils % (A) 63 %; Platelet Count 198 k/uL (150-450); RBC 4.07 m/uL (4.30-5.90); RDW 13.5 % (11.5-15.5); WBC 5.8 k/uL (3.8-10.6)
[2021-01-30 09:26] LABS: African American GFR (CKD) >90 (>60 ml/min/1.73 sqM); Anion Gap 6 mmol/L; Blood Urea Nitrogen 17 mg/dL (9-20); Calcium 8.8 mg/dL (8.4-10.2); Carbon Dioxide 23 mmol/L (22-30); Chloride 112 mmol/L (98-107); Glucose 96 mg/dL (74-99); Non-African American GFR(CKD) 81 (>60 ml/min/1.73 sqM); Potassium 4.4 mmol/L (3.5-5.1); Sodium 141 mmol/L (137-145)
[2021-01-30 09:47] LABS: INR 1.1 (<1.2); Prothrombin Time 11.4 sec (9.0-12.0)
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
[2021-01-30] MEDS: HEPARIN SOD,PORK IN 0.45% NACL 25,000 UNIT in 0.45% NACL 1 250ML.BAG IV SCH (15:58)
[2021-01-30] MEDS: MULTIVITAMINS, THERA 1 EACH TAB PO SCH (15:59)
[2021-01-30] MEDS ORDERED: METOPROLOL SUCCINATE (ER) 50 MG TAB.ER.24H PO SCH (16:00)
[2021-01-30] MEDS ORDERED: ATORVASTATIN 40 MG TAB PO SCH (16:00)
[2021-01-30] MEDS ORDERED: EZETIMIBE 10 MG TAB PO SCH (16:00)
[2021-01-30] MEDS ORDERED: TAMSULOSIN 0.4 MG CAP.ER.24H PO SCH (16:00)
[2021-01-30] MEDS: DILTIAZEM 125 MG in SODIUM CHLORIDE 0.9% 100 ML IV SCH (16:00)
[2021-01-30] MEDS ORDERED: LOSARTAN 50 MG TAB PO SCH (16:00)
[2021-01-30] MEDS ORDERED: CLOPIDOGREL 75 MG TAB PO SCH (16:00)
--- NOTE | 2021-01-31 00:08 | P.PN ---
Subjective Progress Note Date: 01/30/21 Patient is a 80-year-old male with a known history of paroxysmal atrial fibrillation/flutter currently not on anticoagulation, coronary artery disease with history of stent placement, GERD, hypertension, hyperlipidemia, history of CA and enlarged prostate presents to ER with complaints of chest pain. Chest pain began approximately 2 hours prior to arrival. Patient states that he went to restaurant at her work 1 PM today afternoon and was ordering something to eat. Suddenly patient developed chest pain radiating to the right arm and across the chest. Denies any increased short of breath. Associated with diaphoresis. No complaints of dizziness or lightheadedness. Patient did take aspirin nitroglycerin without significant relief. Patient did not take his metoprolol dose by the time he went out. He usually takes his medications in the afternoon. Patient has been afebrile. Denies any complaints of cough or sputum production. No increase in leg swelling. Denies any increased short of breath. EKG showed atrial flutter. Chest x-ray showed no acute cardiopulmonary disease. Laboratory data showed WBC 6.3 hemoglobin 13.4 and platelets 237 Sodium 138 potassium 4.0 chloride 110 bicarb is 20 BUN 22 and creatinine 1.08 blood sugar is 130 Troponin 0 0.012, 0.188 and 0.456 01/30/2021 Patient is currently resting in the bed comfortably. No complaints of chest pain or shortness breath. Heart rate is better controlled. Off Cardizem drip. Currently being continued on heparin drip. Patient did have an episode of bleeding per rectum while he was straining at stool. No active bleeding currently. Monitor H&H. Patient denied any complaints of nausea vomiting abdominal pain or diarrhea. Denied any dysuria or hematuria. Patient has been afebrile. No cough or sputum production. Current medications reviewed. Objective - Vital Signs Vital signs: Vital Signs Temp 98.3 F 01/30/21 20:40 Pulse 74 01/30/21 20:40 Resp 18 01/30/21 20:40 BP 148/67 01/30/21 20:40 Pulse Ox 99 01/30/21 20:40 Intake & Output 01/30/21 01/30/21 01/31/21 06:59 18:59 06:59 Intake Total 720.143 Balance 720.143 Weight 102.6 kg Intake: Intake, IV Titration 240.143 Amount Heparin Sod,Pork in 0.45% 240.143 NaCl 25,000 unit In 0.45 % NaCl 1 250ml.bag @ 10. 02 UNITS/KG/HR 9.999 mls/ hr IV .Q24H [facility] Rx#: [id number] Oral 480 Other: Voiding Method Toilet Toilet # Voids 1 1 - Exam PHYSICAL EXAMINATION: Patient is lying in the bed comfortably, no acute distress, awake alert and oriented.. HEENT: Normocephalic. Neck is supple. Pupils reactive. Nostrils clear. Oral cavity is moist. Neck reveals no JVD, carotid bruits, or thyromegaly. CHEST EXAMINATION: Trachea is central. Symmetrical expansion. Lung roberson clear to auscultation and percussion. CARDIAC: Normal S1, S2 with no gallops. No murmurs ABDOMEN: Soft. Bowel sounds normal. No organomegaly. No abdominal bruits. Extremities: reveal no edema. No clubbing or cyanosis Neurologically awake, alert, oriented x3 with well-coordinated movements. No focal deficits noted Skin: No rash or skin lesions. Psychiatric: Coperative. Nonsuicidal Musculoskeletal: No joint swelling or deformity. Normal range of motion. - Labs CBC & Chem 7: 01/30/21 07:43 01/30/21 07:43 Labs: Abnormal Lab Results - Last 24 Hours (Table) 01/30/21 01/30/21 01/30/21 Range/Units 07:43 07:43 07:43 RBC 4.07 L (4.30-5.90) m/uL Hgb 12.9 L (13.0-17.5) gm/dL Hct 38.1 L (39.0-53.0) % APTT 57.5 H (22.0-30.0) sec Chloride 112 H (98-107) mmol/L Assessment and Plan Assessment: Atrial flutter with variable block. Right vertebral branch block. Coronary artery with history of stent placement Elevated troponin level likly due to tachycardia Atrial flutter with history of ablation. GERD Hypertension Hyperlipidemia History of [place] BPH DVT prophylaxis Plan: Cardizem drip is off at this time and patient is currently on heparin drip. Continue telemetry monitoring. Metoprolol dose was increased. Cardiology is following. Continue telemetry monitoring. Serial EKG and troponins. Currently patient denied any complaints of chest pain. Continue to follow closely. Continue with home blood pressure medications, Plavix and statins. Time with Patient: Greater than 30
[2021-01-31] MEDS: MULTIVITAMINS, THERA 1 EACH TAB PO SCH (09:26)
[2021-01-31 09:56] LABS: Basophils % (A) 1 %; Eosinophils # (A) 0.1 k/uL (0-0.7); Eosinophils % (A) 3 %; HCT 39.5 % (39.0-53.0); HGB 13.2 gm/dL (13.0-17.5); Lymphocytes # (A) 1.1 k/uL (1.0-4.8); Lymphocytes % (A) 26 %; MCH 31.5 pg (25.0-35.0); MCHC 33.4 g/dL (31.0-37.0); MCV 94.5 fL (80.0-100.0); Mean Platelet Volume 6.8; Monocytes # (A) 0.3 k/uL (0-1.0); Monocytes % (A) 6 %; Neutrophils # (A) 2.7 k/uL (1.3-7.7); Neutrophils % (A) 61 %; Platelet Count 214 k/uL (150-450); RBC 4.18 m/uL (4.30-5.90); RDW 13.6 % (11.5-15.5); WBC 4.5 k/uL (3.8-10.6)
[2021-01-31 10:15] LABS: African American GFR (CKD) >90 (>60 ml/min/1.73 sqM); Anion Gap 9 mmol/L; Blood Urea Nitrogen 13 mg/dL (9-20); Calcium 9.2 mg/dL (8.4-10.2); Carbon Dioxide 23 mmol/L (22-30); Chloride 110 mmol/L (98-107); Glucose 94 mg/dL (74-99); Non-African American GFR(CKD) 83 (>60 ml/min/1.73 sqM); Potassium 4.3 mmol/L (3.5-5.1); Sodium 142 mmol/L (137-145)
[2021-01-31 10:57] VITALS: RESP 18
--- NOTE | 2021-01-31 11:01 | PN ---
PROGRESS NOTE Mr. Salomon 80-year-old male with a history of atrial flutter ablation in the past, history of AV alona reentry tachycardia, history of permanent pacemaker implantation who presented with episode of tachycardia and AV alona reentry. He is back in sinus mechanism, feeling much better. He has underwent repeat cardiac catheterization in 2019 and medical therapy was recommended. He denies any dizziness or palpitation. He is ambulating. Anxious to go home. He denies any nausea or vomiting. He denies any cough. He continues to be at this time on Lipitor 40 mg daily, diltiazem IV, Plavix 75 mg daily, Zetia, IV heparin, losartan 50 mg daily, metoprolol succinate 50 mg daily, and Flomax. PHYSICAL EXAMINATION: Blood pressure 132/60 with a heart rate 70. LUNGS: Clear. HEART: Regular rhythm S1, S2. No S3. No rub with systolic murmur. ABDOMEN: Soft, nontender, obese. EXTREMITIES: No edema. LAB DATA: Lab data revealed BUN and creatinine 13 and 0.88. Hemoglobin of 13.2. IMPRESSION: 1. 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 Patient had similar episode in the past. 2. History of coronary artery disease. 3. Mild troponin elevation related to tachycardia. There is no evidence to suggest acute coronary syndrome. 4. Remote history of atrial flutter ablation. 5. Permanent pacemaker implantation. RECOMMENDATIONS: I will stop his IV heparin. We will obtain echocardiogram with Doppler. I will stop his IV Cardizem, increase his level of activity. If his echo shows no significant changes, then I would expect he should be able to be discharged home and follow with us as an outpatient with Dr. Chen for evaluation for possible ablation. MMODL / IJN: [id number] / MIS
--- NOTE | 2021-01-31 12:03 | ECHOF ---
Referral Reason:arrhythmia MEASUREMENTS -------- HEIGHT: 157.5 cm WEIGHT: 101.2 kg BP: RVIDd: 3.4 cm (< 3.3) IVSd: 1.3 cm (0.6 - 1.1) LVIDd: 4.8 cm (3.9 - 5.3) LVPWd: 1.5 cm (0.6 - 1.1) IVSs: 2.0 cm LVIDs: 4.5 cm LVPWs: 1.3 cm LA Diam: 4.0 cm (2.7 - 3.8) Ao Diam: 3.1 cm (2.0 - 3.7) AV Cusp: 2.0 cm (1.5 - 2.6) LA Diam: 4.1 cm (2.7 - 3.8) MV E Mario: 0.76 m/s MV DecT: 226 ms MV A Mario: 1.01 m/s MV E/A Ratio: 0.75 RAP: 5.00 mmHg RVSP: 16.65 mmHg FINDINGS -------- Undetermined rhythm. This was a technically adequate study. The left ventricular size is normal. There is mild concentric left ventricular hypertrophy. Overa ll left ventricular systolic function is low-normal with, an EF between 50 - 55 %. The right ventricle is normal in size. The left atrial size is normal. The right atrial size is normal. There is mild aortic valve sclerosis. There is no evidence of aortic regurgitation. Mild mitral annular calcification present. Mild mitral regurgitation is present. Mild tricuspid regurgitation present. Right ventricular systolic pressure is normal at < 35 mmHg. The pulmonic valve was not well visualized. Echo free space represents a pericardial fat pad. CONCLUSIONS -------- 1. The left ventricular size is normal. 2. There is mild concentric left ventricular hypertrophy. 3. Overall left ventricular systolic function is low-normal with, an EF between 50 - 55 %. 4. The right ventricle is normal in size. 5. The left atrial size is normal. 6. The right atrial size is normal. 7. There is mild aortic valve sclerosis. 8. Mild mitral annular calcification present. 9. Mild mitral regurgitation is present. 10. Mild tricuspid regurgitation present. 11. The pulmonic valve was not well visualized. 12. Echo free space represents a pericardial fat pad. DELIVERY REP: Lynda Boykin RD
[2021-01-31 12:30] VITALS: BP 143/80; PULSE 67; TEMP 97.8
[2021-02-01] MEDS ORDERED: ASPIRIN 81 MG PO SCH (09:00)
--- NOTE | 2021-02-01 22:46 | P.DS ---
Providers Date of admission: 01/29/21 15:25 Expected date of discharge: 01/31/21 Attending physician: Eulalio Vega Consults: 01/29/21 15:28 Consult Physician Routine Consulting Provider: Blanco Chen Consult Reason/Comments: Atrial flutter, chest pain Do you want consulting provider notified?: Yes Primary care physician: Lopez Singh [place] [facility] Course: Hospital course Patient is a 80-year-old male, who follows with Dr. Singh with a known history of paroxysmal atrial fibrillation/flutter currently not on anticoagulation, coronary artery disease with history of stent placement, GERD, hypertension, hyperlipidemia, history of OH and enlarged prostate presents to ER with complaints of chest pain. Chest pain began approximately 2 hours prior to arrival. Patient states that he went to restaurant at her work 1 PM today afternoon and was ordering something to eat. Suddenly patient developed chest pain radiating to the right arm and across the chest. Denies any increased sh ort of breath. Associated with diaphoresis. No complaints of dizziness or lightheadedness. Patient did take aspirin nitroglycerin without significant relief. Patient did not take his metoprolol dose by the time he went out. He usually takes his medications in the afternoon. Patient has been afebrile. Denies any complaints of cough or sputum production. No increase in leg swelling. Denies any increased short of breath. EKG showed atrial flutter. Chest x-ray showed no acute cardiopulmonary disease. Laboratory data showed WBC 6.3 hemoglobin 13.4 and platelets 237 Sodium 138 potassium 4.0 chloride 110 bicarb is 20 BUN 22 and creatinine 1.08 blood sugar is 130 Troponin 0 0.012, 0.188 and 0.456 01/31/2021: Patient felt to be an AV alona reentrant tachycardia has been back in sinus rhythm. Troponin 0 been felt to be from tachycardia. Feeling well. Care was discussed with the patient and . Discussed with Dr. Menjivar. Patient to remain off anticoagulation. He'll follow-up with Dr. Chen. Discussion and discharge planning more than 35 minutes Consultation: Dr. Menjivar from cardiology Vitals: 97.8, 67, 18, on 43/80, 97% room air Gen.: Sitting at the edge off bed, comfortable Cardiovascular: First second sounds normal, no edema Lungs: Clear Psych AO 3, mood and affect normal INVESTIGATIONS, reviewed in the clinical context: White count 4.5 hemoglobin 13.2 platelets 214 potassium 4.3 creatinine 0.8 date Troponin I 0.188, 0.456 TSH 2.2 2-D echocardiogram: EF 50-55% Assessment and plan: -AV alona reentrant tachycardia: Notw in sinus rhythm -Troponin leak from tachycardia. No ACS per cardiology -Remote history of atrial flutter fibrillation. Currently sinus rhythm -CAD with history of stent -GERD -Hyperlipidemia -Essential hypertension -Primary osteoarthritis -BPH Disposition: Home Patient Condition at Discharge: Stable Plan - Discharge Summary Discharge Rx Participant: Yes New Discharge Prescriptions: New Aspirin 81 mg PO DAILY Continue Multivitamins, Thera [Multivitamin (formulary)] 1 tab PO DAILY [place]-3 Fatty Acids [[place]-3] 2,000 mg PO DAILY Ezetimibe [Zetia] 10 mg PO DAILY@1600 Evolocumab [Repatha Syringe] 140 mg INJ Q14D Clopidogrel [Plavix] 75 mg PO DAILY@1600 Tamsulosin [Flomax] 0.4 mg PO DAILY@1600 Rosuvastatin [Crestor] 20 mg PO DAILY@1600 Metoprolol Succinate (ER) [Toprol XL] 50 mg PO DAILY@1600 Losartan [Cozaar] 50 mg PO DAILY@1600 Cholecalciferol [Vitamin D3 (25 Mcg = 1000 Iu)] 25 mcg PO DAILY Discontinued Zinc 50 mg PO DAILY Discharge Medication List Multivitamins, Thera [Multivitamin (formulary)] 1 tab PO DAILY 12/22/13 [History] [place]-3 Fatty Acids [[place]-3] 2,000 mg PO DAILY 12/22/13 [History] Evolocumab [Repatha Syringe] 140 mg INJ Q14D 12/11/19 [History] Ezetimibe [Zetia] 10 mg PO DAILY@1600 12/11/19 [History] Cholecalciferol [Vitamin D3 (25 Mcg = 1000 Iu)] 25 mcg PO DAILY 01/29/21 [History] Clopidogrel [Plavix] 75 mg PO DAILY@1600 01/29/21 [History] Losartan [Cozaar] 50 mg PO DAILY@1600 01/29/21 [History] Metoprolol Succinate (ER) [Toprol XL] 50 mg PO DAILY@1600 01/29/21 [History] Rosuvastatin [Crestor] 20 mg PO DAILY@159901/29/21 [History] Tamsulosin [Flomax] 0.4 mg PO DAILY@1600 01/29/21 [History] Aspirin 81 mg PO DAILY 01/31/21 [Rx] Follow up Appointment(s)/Referral(s): Blanco Chen MD [Family Provider] - 1 Week Lopez Singh MD [Primary Care Provider] - 1-2 days Discharge Disposition: HOME SELF-CARE
== END 2021-01-31 14:35 | disposition home or self-care (01) | DRG 309 ==
LOC: EC 14:12 → 3SCARD 15:25
PROVIDERS: ADMIT Hospitalist; ATTEND Hospitalist
DX: I48.92 Unspecified atrial flutter (principal); K62.5 Hemorrhage of anus and rectum; I25.10 Atherosclerotic heart disease of native coronary artery without angina pectoris; R00.0 Tachycardia, unspecified; I45.10 Unspecified right bundle-branch block; I48.0 Paroxysmal atrial fibrillation; I25.2 Old myocardial infarction; E78.5 Hyperlipidemia, unspecified; I10 Essential (primary) hypertension; K21.9 Gastro-esophageal reflux disease without esophagitis; R77.8 Other specified abnormalities of plasma proteins; N40.0 Benign prostatic hyperplasia without lower urinary tract symptoms; Z95.5 Presence of coronary angioplasty implant and graft; Z82.49 Family history of ischemic heart disease and other diseases of the circulatory system; Z79.02 Long term (current) use of antithrombotics/antiplatelets; Z95.0 Presence of cardiac pacemaker; Z80.6 Family history of leukemia
CPT/HCPCS: 36415; 71046; 80048; 80053; 83735; 84443; 84484; 85025; 85610; 85730; 93005; 93306; 96361; 96374; 96375; 99291

== ENCOUNTER 2021-02-24 09:06 | Day surgery (SDC) | payer MEDICARE, BC ==
[2021-02-22 11:41] VITALS: BMI 28.7
[~2021-02-24 09:06] MED LIST changes: +ALPRAZolam 0.25 MG TAB PO PRN; +ALPRAZolam 0.5 MG TAB PO PRN; +ASPIRIN 325 MG TAB PO ONE; +ATORVASTATIN 80 MG TAB PO ONE; -LACTATED RINGERS 1,000 ML IV SCH; +NITROGLYCERIN SL TABS 0.4 MG TAB SUBLINGUAL PRN; +SODIUM CHLORIDE 0.9% 1,000 ML in EMPTY BAG 1 BAG IV SCH
[2021-02-24 10:01] VITALS: RESP 18; TEMP 97.9
[2021-02-24] MEDS ORDERED: LIDOCAINE 1% INJ 10MG/ML (20 ML MDV) ONE (10:06)
[2021-02-24] MEDS: MIDAZOLAM 2 MG/2 ML VIAL IV ONE ×2 (10:55→11:01)
[2021-02-24] MEDS ORDERED: LIDOCAINE 1% INJ 10MG/ML (20 ML MDV) SQ ONE (11:00)
[2021-02-24] MEDS ORDERED: HYDROmorphone 0.5 MG/0.5 ML SYRINGE IVP ONE (11:18)
[2021-02-24] MEDS ORDERED: IOPAMIDOL-370 100ML BTL INJ ONE (11:19)
[2021-02-24] MEDS ORDERED: SODIUM CHLORIDE 0.9% 1,000 ML IV SCH (11:30)
--- NOTE | 2021-02-24 13:11 | CC ---
CARDIAC CATHETERIZATION REPORT DATE OF SERVICE: 02/24/2021 PROCEDURE: Left heart catheterization, coronary angiography. PERFORMED BY: Dr. Tracy Cohen. Moderate conscious sedation time was 27 minutes. Patient was administered Versed. Oxygen saturation, hemodynamics and EKG were monitored closely. CLINICAL INFORMATION: Mr. Phani Salomon is a 80-year-old gentleman with history of hypertension, CAD and hyperlipidemia. Over the years he has had stenting of mid LAD performed and also most recent stenting was in May of 2018 with a second obtuse marginal, which was a large vessel, that was stented with a drug-eluting stent. His first obtuse marginal lesion was about 60% to 70% and he was advised medical therapy, given the fact that it was a bifurcation lesion and the main circumflex was free of significant disease. He has done well over the years, but has been having symptoms suggestive of angina. Therefore he was advised cardiac cath and brought in for the procedure electively after due discussion regarding risks, benefits and options. PROCEDURE NOTE: Under local anesthesia and strict aseptic precautions, a 6-Faroese introducer was placed in the right femoral artery. Using standard Cody catheters I performed coronary angiography, and the same right catheter was used to check LV pressure, but LV gram was not performed. The sheath was taken out and a Perclose device used to secure hemostasis and he was sent to the room in a stable condition. The patient tolerated procedure well without complications. The results were discussed with the patient. He was advised medical therapy and will be discharged later today to see Dr. Chen in one week. CARDIAC CATHETERIZATION FINDINGS: The left ventricular end-diastolic pressure was about 14 mmHg without any gradient across the aortic valve. CORONARY ANGIOGRAPHY FINDINGS: RIGHT CORONARY ARTERY: This is a large-caliber, dominant vessel. No significant disease. Mild calcification distally. Bifurcates into PDA and PLV, both of which have minor diffuse disease but no significant obstruction. RCA therefore is a dominant vessel, relatively disease-free. LEFT MAIN CORONARY ARTERY: Short, patent, disease-free vessel that bifurcates into LAD and circumflex. LEFT ANTERIOR DESCENDING CORONARY ARTERY: Good-caliber vessel extends along the anterior wall, gives off a good-sized diagonal branch proximally and then runs along the anterior wall. The mid LAD that was stented is widely patent, has no significant disease. The distal one-fourth of the vessel has diffuse disease and there is a distal subtotal occlusion before the apex, and the distal small branches supply the inferoapical portion. This distal one-fourth 80% to 90% lesion is not new; it was seen in all the angiograms before, but mid LAD that was stented is widely patent. The diagonal vessel was also widely patent. LEFT POSTERIOR CIRCUMFLEX CORONARY ARTERY: Nondominant vessel gives off a first obtuse marginal that actually looks much better. There is no more than 50% narrowing with brisk flow. Second obtuse marginal that was stented is widely patent with good flow. Distal circumflex divides into 2 small branches. No significant disease. Left ventriculogram was not performed. FINAL IMPRESSION: This patient has a right-dominant system, normal filling pressures, no gradient. No significant disease in the RCA. Previously stented LAD and second obtuse marginal are patent. Distal LAD has a 90% lesion which is unchanged. Second obtuse marginal stent is widely patent. First obtuse marginal has no more than 50% narrowing. Overall angiogram looks better than it did in September of 2018. RECOMMENDATIONS: Findings were discussed with the patient and his . I am recommending continued medical therapy with risk factor modification. Patient will be discharged later on today and Dr. Chen will see him in one week. MMODL / IJN: [id number] /
[2021-02-24 16:13] VITALS: BP 146/72; PULSE 60
== END 2021-02-24 16:33 | disposition home or self-care (01) ==
LOC: CATHCVL 09:06
PROVIDERS: ATTEND Internal Medicine Interventional Cardiology
DX: I25.10 Atherosclerotic heart disease of native coronary artery without angina pectoris (principal); I10 Essential (primary) hypertension; E78.5 Hyperlipidemia, unspecified; Z95.5 Presence of coronary angioplasty implant and graft; Z79.82 Long term (current) use of aspirin; Z79.899 Other long term (current) drug therapy
CPT/HCPCS: 93458; 87635; C1894; C1769 ×2; C1760; J2250; J2001; J1170; Q9967

== ENCOUNTER 2021-04-27 13:14 | Day surgery (SDC) | payer MEDICARE, BC ==
[2021-04-24 15:38] VITALS: BMI 31.5
[~2021-04-27 13:14] MED LIST changes: -ALPRAZolam 0.25 MG TAB PO PRN; -ALPRAZolam 0.5 MG TAB PO PRN; -ASPIRIN 325 MG TAB PO ONE; -ATORVASTATIN 80 MG TAB PO ONE; +LACTATED RINGERS 1,000 ML IV SCH; -NITROGLYCERIN SL TABS 0.4 MG TAB SUBLINGUAL PRN; +SODIUM CHLORIDE 0.9% 1,000 ML IV SCH; -SODIUM CHLORIDE 0.9% 1,000 ML in EMPTY BAG 1 BAG IV SCH
[2021-04-27] MEDS ORDERED: SODIUM CHLORIDE 0.9% 1,000 ML IV ONE (13:35)
[2021-04-27] MEDS ORDERED: ISOPROTERENOL 250 MCG/1.25 ML SYR IV ONE (14:17)
[2021-04-27] MEDS ORDERED: .fentaNYL (PF) 50 MCG/ML 2 ML AMP ONE (14:17)
[2021-04-27] MEDS ORDERED: MIDAZOLAM 2 MG/2 ML VIAL ONE (14:17)
[2021-04-27] MEDS ORDERED: HEPARIN SODIUM (1,000 UNIT/ML) 1,000 UNIT in SODIUM CHLORIDE 0.9% 1,000 ML IRRIGATION ONE (14:40)
[2021-04-27] MEDS ORDERED: LIDOCAINE 1% INJ 10MG/ML (20 ML MDV) SQ ONE (14:48)
[2021-04-27] MEDS ORDERED: ACETAMINOPHEN IV (For NPO) 1,000 MG in EMPTY BAG 1 BAG IVPB ONE (16:19)
[2021-04-27] MEDS ORDERED: ACETAMINOPHEN TAB 325 MG TAB PO PRN (16:19)
--- NOTE | 2021-04-27 16:43 | P.EPPROC ---
- EP Procedure Note Electrophysiology Procedure Note: This is Dr. 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 Recurrent episodes Known coronary artery disease status post stenting Past history of HI Sick Sinus Syndrome status post permanent pacemaker implantation PLAN: Diagnostic EP study and efficacy ablation for SVT Stop omega-3 fatty acids Continue metoprolol thereafter HPI Patient complains of recurrent palpitations associated with chest discomfort these episodes are also associated with diaphoresis and fatigue He denies any fever chills ROS: No fever chills or rigors, no cough, phlegm or expectoration, no nausea, vomiting or diarrhea, no hematuria, dysuria, no musculoskeletal complaints, no strokes or seizures, no skin lesions. EXAMINATION: 97-17F pulse rate in the 60s blood pressure 151/76 mmHg pulse ox 98% Normal heart sounds normal S1 normal S2 Normal breath sounds no rhonchi no crackles Abdomen is soft nontender Extremities are warm no edema REVIEW OF LABS, ECG & MEDICAL DATA Negative PCR for coronavirus
--- NOTE | 2021-04-27 16:45 | P.PRLE ---
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 He underwent a diagnostic EP study which confirmed AV alona reentrant tachycardia as the mechanism of SVT He underwent slow pathway ablation and successfully without any acute complications I will restarting his beta delia since he has coronary artery disease as well as intermittent angina I'm also recommending that he stop omega-3 fatty acids Based on the recent 2 studies, there is no cord or vascular benefit of omega-3 fatty acids however there is an increased bleeding risk as well as risk of atrial fibrillation is increased. Thank you for entrusting me with the care of the patient Warm regards Sincerely Blanco Chen
--- NOTE | 2021-04-27 17:18 | CE ---
CARDIAC ELECTROPHYSIOLOGY REPORT Phani Salomon is a 81-year-old male patient who complains of recurrent palpitations and also has chest discomfort. He has a dual-chamber pacemaker implanted. He has undergone cryoablation of the pulmonary veins previously for atrial fibrillation, and we have documented complex supraventricular tachycardia consistent with AV alona reentry associated with palpitations and chest discomfort. This has occurred despite beta blockers. He was brought in for an EP study and ablation. Patient was brought to the EP lab in a fasting state. Written informed consent was obtained prior to the procedure. IV antibiotics were administered. The pacemaker was interrogated and was reprogrammed. Rate responsiveness was turned off. Additional enhancements were turned off. Fluoroscopy of the leads was performed at baseline. The atrial lead was screwed in the right atrial appendage, RV lead in the RV septum. No fractures or breaks. Venous sheaths were placed in the right and left femoral veins, and via these diagnostic catheters were positioned in the right heart (high right atrial catheter, His bundle catheter, RV and coronary sinus). Diagnostic EP study was performed. AV node Wenckebach block 440 milliseconds. With straight pacing in the high right atrium, SVT was induced. The onset was at the jump in the AH interval, and the septal times were less than 60 milliseconds. The post- pacing interval was long and the post-pacing interval minus tachycardia cycle length was 166 milliseconds. The SVT was consistent with AV alona reentry. A long sheath was placed. RF mapping and ablation catheters, irrigated-tip was used. The His bundle cloud was tagged. The coronary sinus os and roof were tagged. Slow pathway was mapped. RF ablation was performed. Junctional rhythm was obtained. Contact force of up to 10 grams and RF energy up to 30- 35 hines was used. The tachycardia was rendered noninducible and there was no evidence of slow pathway conduction. Following that, straight pacing was performed from the high right atrium, the coronary sinus. Burst stimulation was performed. No SVT was induced. Occasional single beats were noted with extra stimulation from the coronary sinus. Atrial ERP from the coronary sinus was 500/230 milliseconds. VA ERP was 500/230 milliseconds. Isuprel was started wide open, then at 1 mcg. Atrial and ventricular stimulation was performed. No SVT was induced. At the end of the procedure, all catheters were removed. Fluoroscopy of the leads revealed stable position. The device was re-interrogated and reprogrammed. Rate responsiveness was turned on. Additional enhancements were turned on. RESULT: Diagnostic EP study revealing AV alona re-entry as a mechanism of the tachycardia. Status post slow pathway ablation and successful elimination of AV alona reentry. PLAN: Resume beta blockers other cardiac medications. Stop fish oil. IVIS / SHRUTHIN: [id number] /
[2021-04-27] MEDS: METOPROLOL SUCCINATE (ER) 100 MG TAB.ER.24H PO SCH (21:34)
[2021-04-27] MEDS: APIXABAN 5 MG TAB PO SCH (21:34)
[2021-04-28 03:44] VITALS: PULSE 62
[2021-04-28] MEDS: APIXABAN 5 MG TAB PO SCH (08:02)
[2021-04-28 08:03] VITALS: BP 126/67; RESP 18; TEMP 98
[2021-04-28] MEDS: METOPROLOL SUCCINATE (ER) 100 MG TAB.ER.24H PO SCH (08:03)
--- NOTE | 2021-04-28 08:51 | DS ---
DISCHARGE SUMMARY Mr. Salomon is doing well. He is lying comfortably in bed. He has been ambulating around the room and going to the bathroom. His groins have healed well. There is no hematoma and no swelling. Heart sounds are normal. Breath sounds are clear. Abdomen is soft. Vitals are stable. His 12-lead EKG shows atrial paced rhythm with a right bundle branch block pattern. No ST-segment abnormalities. IMPRESSION: 1. AV alona reentrant tachycardia, status post successful ablation. 2. Coronary artery disease, status post stenting, history of old myocardial infarction. 3. History of atrial fibrillation, on anticoagulation. SUGGEST: Continue all medications unchanged. Restart beta blockers. Stop fish oil. Follow up with Dr. Chen in 1 to 2 weeks. MMODL / IJN: [id number] /
[2021-04-28] MEDS ORDERED: EZETIMIBE 10 MG TAB PO SCH (16:00)
[2021-04-28] MEDS ORDERED: ATORVASTATIN 40 MG TAB PO SCH (16:00)
[2021-04-28] MEDS ORDERED: LOSARTAN 50 MG TAB PO SCH (16:00)
[2021-04-28] MEDS ORDERED: CLOPIDOGREL 75 MG TAB PO SCH (16:00)
[2021-04-28] MEDS ORDERED: TAMSULOSIN 0.4 MG CAP.ER.24H PO SCH (16:00)
== END 2021-04-28 10:45 | disposition home or self-care (01) ==
LOC: CATHEP 13:14 → 6NMEDSUR 16:22 → CATHEP 04-28 10:45
PROVIDERS: ATTEND Internal Medicine Clinical Cardiac Electrophysiology
DX: I47.1 Supraventricular tachycardia (principal); Z95.0 Presence of cardiac pacemaker; I45.10 Unspecified right bundle-branch block; I48.92 Unspecified atrial flutter; I25.10 Atherosclerotic heart disease of native coronary artery without angina pectoris; M19.90 Unspecified osteoarthritis, unspecified site; I10 Essential (primary) hypertension; I25.2 Old myocardial infarction; Z20.822 Contact with and (suspected) exposure to COVID-19; Z95.5 Presence of coronary angioplasty implant and graft; Z79.82 Long term (current) use of aspirin; Z79.02 Long term (current) use of antithrombotics/antiplatelets; Z79.899 Other long term (current) drug therapy
CPT/HCPCS: 93613; 93653; 87635; C1894; C1769 ×2; C1760 ×2; C1730 ×3; C1893; C1732; J2250; J0690; J2001; J3010; J1644; 93623